=== PATIENT | male | born 1990 | race Caucasian/White ===

== ENCOUNTER 2020-07-12 13:31 | Emergency (ER) | payer OTHER, SELFPAY ==
--- NOTE | 2020-07-12 14:16 | ED_ITS ---
HPI - Nausea/Vomiting/Diarrhea General Chief complaint: Nausea/Vomiting/Diarrhea Stated complaint: diarrhea Time Seen by Provider: 07/12/20 14:15 Source: patient Mode of arrival: ambulatory Limitations: no limitations History of Present Illness MD elicited complaint: nausea, diarrhea and abdominal pain Onset (ago): week(s) (3+) Description of diarrhea: watery and loose Associated nausea: Yes Associated abdominal pain: Yes Location of pain: diffuse Radiation: diffuse Pain consistency: intermittent Severity: moderate Quality: cramping Exacerbating factors: eating Relieving factors: none Associated symptoms: loss of appetite and nausea/vomiting Related Data Allergies Allergy/AdvReac Type Severity Reaction Status Date / Time No Known Allergies Allergy Verified 07/12/20 14:40 [No Known Allergies*] Review of Systems Review of Systems: Constitutional : 10lb weight loss, No Fever, No Chills ENT/Mouth : No sore throat, No Rhinorrhea Eyes: No Swelling, No Redness Cardiovascular : No Chest Pain, No SOB, NoEdema Respiratory : No Cough, No Sputum, No Wheezing Gastrointestinal : Positive Nausea, no Vomiting, positive Diarrhea, positive abdominal Pain, No Hematochezia, No Melena Genitourinary : No Dysuria, No Urinary Frequency, No Hematuria, No Urgency Musculoskeletal : No joint pain, No Myalgias, No Joint Swelling Skin : No Skin Lesions, No rash Neuro : No Weakness, No Numbness, No Dizziness, No Headache Psych : No Anxiety/Panic, No Depression Heme/Lymph: No Bruising, No Lymphadenopathy Endocrine : No Polyuria, No Polydipsia All other systems reviewed and are negative. Gastrointestinal: Gastrointestinal: Reports nausea PMFSH Past Medical History Medical History (Updated 07/12/20 @ 15:53 by Glenda Vance DO) Bronchitis Social History Social History (Updated 07/12/20 @ 14:41 by Glenda Vance DO) Alcohol intake: never Smoking Status: Former smoker Use of substances other than those prescribed or required for medical reasons: No Advance Directives: No Advance Directives Information Provided: Yes Physical Exam Vital Signs and I&O and Narrative: Vital Signs and I&O: Vital Signs Temp 98.8 F 07/12/20 14:37 Pulse 69 07/12/20 14:37 Resp 16 07/12/20 14:37 BP 124/85 07/12/20 14:37 Pulse Ox 99 07/12/20 14:37 Intake & Output 07/11/20 07/12/20 07/12/20 18:59 06:59 18:59 Weight 63.503 kg Body Mass Index 22.6 Appearance: Alert. Oriented X3. No acute distress. Eyes: Pupils equal, round and reactive to light. ENT: Pharynx normal. Neck: Normal inspection. Neck supple. CVS: Normal heart rate and rhythm. Pulses normal. Respiratory: No respiratory distress. Breath sounds normal. Abdomen: Soft and nontender. Skin: Skin warm and dry. Normal skin color. Normal skin turgor. Extremities: No lower extremity edema. Normal exam Neuro: Oriented X 3. No motor deficit. No sensory deficit. Course Reevaluation(s) Reevaluation #1: signed out to Dr. White pending CT scan and labs MDM - Nausea/Vomiting/Diarrhea MDM Narrative Medical decision making narrative: patient with 3+ weeks of diarrhea and cramping every time he heats, no risk factors, reports 10lb weight loss, no fam hx of IBD, no risk factors no recent sick contacts or antibiotic use, at this time will need labs, hydration CT scan for colitis Lab Data Result diagrams: 07/12/20 15:00 Labs: Lab Results 07/12/20 07/12/20 Range/Units 15:00 15:00 WBC 9.0 (4.8-10.8) X10*3/uL RBC 4.66 (4.60-5.80) X10*6/uL Hgb 15.9 (14.0-18.0) g/dl Hct 44.1 (42-52) % MCV 94.6 (80-98) fL MCH 34.1 H (27.0-33.0) pg MCHC 36.1 H (31.0-36.0) g/dl RDW 12.2 (11.0-16.0) % Plt Count 284 (160-400) X10*3/uL MPV 9.4 (9.4-12.4) fL Immature Gran % (Auto) 0.3 (0.0-0.4) % Neut % (Auto) 61.5 (45-73) % Lymph % (Auto) 25.2 (20-40) % [place]aden % (Auto) 11.3 H (2-11) % Eos % (Auto) 1.0 (0-4) % Baso % (Auto) 0.7 (0-2) % Neut # (Auto) 5.5 (2.0-8.3) X10*3/uL Lymph # (Auto) 2.3 (1.2-4.9) X10*3/uL Bladen # (Auto) 1.0 (0.1-1.2) X10*3/uL Eos # (Auto) 0.1 (0.0-0.4) X10*3/uL Baso # (Auto) 0.1 (0.0-0.2) X10*3/uL Abs Immat Gran (auto) 0.03 (0.00-0.03) X10*3/uL Absolute Nucleated RBC 0.000 (0.0-0.012) X10*3/uL Nucleated RBC % (auto) 0.0 (0.0-0.2) /100WBC Hold Blue Top SEE NOTE Discharge Plan Discharge Clinical Impression: Diarrhea Qualifiers: Diarrhea type: unspecified type Qualified Code(s): R19.7 - Diarrhea, unspecified
[2020-07-12 14:37] VITALS: BP 124/85; PULSE 69; RESP 16; TEMP 37.1; O2SAT 99; BMI 22.6
--- NOTE | 2020-07-12 14:38 | CT_ITS ---
EXAMINATION: CT ABDOMEN AND PELVIS WITH CONTRAST CLINICAL INFORMATION: Abdominal pain. Diarrhea. COMPARISON: None TECHNIQUE: Multidetector volumetric images were obtained from the superior aspect of the liver through the pubic symphysis following administration 85 mL of Omnipaque 350 intravenous contrast. Sagittal and coronal reformatted images were obtained on the technologist's workstation. Oral contrast: No This CT examination was performed using dose optimization techniques as appropriate, variously including the following: *Automated exposure control *Adjustment of mA and/or kV according to patient size (this includes techniques or standardized protocols for targeted exams where dose is matched to indication/reason for exam; i.e. extremities or head) *Use of iterative reconstruction technique DLP: 375 mGy-cm FINDINGS: LUNG BASES: The visualized lung bases are unremarkable. LIVER, GALLBLADDER, AND BILIARY TREE: The liver is normal in size, shape, and attenuation. No focal hepatic lesion or biliary ductal dilatation is present. The gallbladder is unremarkable with no evidence of radiopaque gallstones, gallbladder wall thickening, or obvious pericholecystic inflammatory changes. PANCREAS: Unremarkable. SPLEEN: Unremarkable. ADRENAL GLANDS: Unremarkable. KIDNEYS AND URETERS: The kidneys are normal in size, shape, and attenuation. No hydronephrosis, hydroureter, or calculi seen. No perinephric stranding. BLADDER: Unremarkable. GASTROINTESTINAL TRACT: The small and large bowel are unremarkable. The appendix is unremarkable. ABDOMINAL WALL: No significant hernia is appreciated. LYMPH NODES: Normal. VASCULAR: Unremarkable. PELVIC VISCERA: Unremarkable. OSSEOUS STRUCTURES: Unremarkable. IMPRESSION: No acute abnormality CT scan abdomen pelvis
[2020-07-12] MEDS: 0.9 % Sodium Chloride 1,000 ML 999 ML IVCONT (15:06)
[2020-07-12 15:38] LABS: MANUAL DIFF FLAG NO
[2020-07-12 15:40] LABS: Basophils Absolute Auto 0.1 X10*3/uL (0.0-0.2); Basophils Percent Auto 0.7 % (0-2); Eosinophils Absolute Auto 0.1 X10*3/uL (0.0-0.4); Hematocrit 44.1 % (42-52); Hemoglobin 15.9 g/dl (14.0-18.0); Imm Gran Abs Auto 0.03 X10*3/uL (0.00-0.03); Imm Gran Pct Auto 0.3 % (0.0-0.4); Lymphocytes Absolute Auto 2.3 X10*3/uL (1.2-4.9); Lymphocytes Percent Auto 25.2 % (20-40); Mean Corpuscular HGB Conc 36.1 g/dl (31.0-36.0); Mean Corpuscular Hemoglobin 34.1 pg (27.0-33.0); Mean Corpuscular Volume 94.6 fL (80-98); Mean Platelet Volume 9.4 fL (9.4-12.4); Monocytes Percent Auto 11.3 % (2-11); Neutrophils Absolute Auto 5.5 X10*3/uL (2.0-8.3); Neutrophils Percent Auto 61.5 % (45-73); Platelet Count 284 X10*3/uL (160-400); Red Blood Count 4.66 X10*6/uL (4.60-5.80); Red Cell Distribution Width 12.2 % (11.0-16.0)
[2020-07-12 15:59] VITALS: PULSE 70
[2020-07-12 16:07] LABS: Alanine Aminotransferase 13 U/L (0-40); Albumin Level 5.1 g/dL (3.5-5.0); Anion Gap 14 (12-20); Aspartate Amino Transferase 12 U/L (5-37); Bilirubin Direct 0.4 mg/dL (0.0-0.5); Blood Urea Nitrogen 13 mg/dL (9-16); C Reactive Protein 0.02 mg/dL (< or = 0.50); Calcium 9.7 mg/dL (8.4-10.2); Carbon Dioxide 29 mmol/L (22-29); Chloride 105 mmol/L (96-108); Creatinine Clr Calc Pharmacy 122.8; Estimated Glomerular Filt Rate > 60; Glucose Random 91 mg/dL (60-115); Lipase 9 U/L (8-78); Magnesium 2.3 mg/dL (1.6-2.6); Potassium 4.1 mmol/l (3.3-5.1); Sodium 144 mmol/L (135-145); Total Protein 7.5 g/dL (6.5-8.0)
[2020-07-12 16:19] LABS: Alkaline Phosphatase 58 U/L (39-117)
[2020-07-12 16:23] LABS: Erythrocyte Sedimentation Rate 2 MM/HR (0-15)
[2020-07-12] MEDS: iohexoL 350 MG/ML 100 ML INFUS..BTL IV (16:40)
[2020-07-12 16:45] VITALS: BP 113/72; PULSE 62; RESP 16; TEMP 36.9; O2SAT 99
== END 2020-07-12 17:14 | disposition home or self-care (01) ==
PROVIDERS: Emergency Medicine; Emergency Provider Emergency Medicine; PCP Internal Medicine
DX: R19.7 Diarrhea, unspecified (principal); R11.0 Nausea; R10.9 Unspecified abdominal pain
CPT/HCPCS: 36415; 74177; 80048; 80076; 83690; 83735; 85025; 85652; 86140; 96360; 99284

== ENCOUNTER 2020-07-15 09:46 | Outpatient (REF) | payer OTHER, SELFPAY ==
[2020-07-15 11:44] LABS: Leukocytes Stool Qualitative NEGATIVE (NEGATIVE)
== END 2020-07-15 09:47 | disposition home or self-care (01) ==
LOC: HO.LNP 09:46
PROVIDERS: Visit Provider Internal Medicine
DX: R19.7 Diarrhea, unspecified (principal)
CPT/HCPCS: 36415; 87015; 87045; 87046; 87207; 87329; 87338; 89055

== ENCOUNTER 2020-07-21 08:45 | Emergency (ER) | payer OTHER, SELFPAY ==
--- NOTE | 2020-07-21 09:02 | ED_ITS ---
HPI - Psych General Chief Complaint: Psychiatric Symptoms Stated Complaint: crisis Time Seen by Provider: 07/21/20 09:02 Source: patient Mode of arrival: ambulatory Limitations: no limitations History of Present Illness MD complaint: suicidal ideation Onset (ago): day(s) (few days) Duration: constant History of same: Yes Relieving factors: none Exacerbating factors: none Context: not taking psychiatric medications (has not had a provider in months to take his medications) Associated psychiatric symptoms: depression and suicidal ideation Associated symptoms: denies other symptoms Treatments prior to arrival: none If self harm: admits thoughts of self harm and self-inflicted trauma (used razor to cause abrasions to left wrist) Related Data Home Medications Medication Instructions Recorded Confirmed ibuprofen 600 mg tablet 600 mg PO TID 07/14/20 Previous Rx's Medication Instructions Recorded loperamide [Anti-Diarrheal 2 mg PO QID PRN #20 cap 07/12/20 (loperamide)] Allergies Allergy/AdvReac Type Severity Reaction Status Date / Time No Known Allergies Allergy Verified 07/14/20 14:49 [No Known Allergies*] Review of Systems Review of Systems: Constitutional : No Fever, No Chills ENT/Mouth : No Ear Pain, No Nasal Congestion, No sore throat Eyes: No Eye Pain, No Swelling, No Redness Cardiovascular : No Chest Pain, No SOB Respiratory : No Cough, No Sputum, No Dyspnea Gastrointestinal : No Nausea, No Vomiting, No Diarrhea Genitourinary : No Dysuria, No Urinary Frequency, No Hematuria Musculoskeletal : No Myalgias Skin : No Skin Lesions, No rash, + superficial lacerations to left wrist Neuro : No Weakness, No Numbness, No Paresthesias, No Dizziness, No Headache Psych : positive Anxiety, positive Depression, positive SI, no HI Heme/Lymph: No Lymphadenopathy Endocrine : No Polyuria, No Polydipsia All other systems reviewed and are negative [facility] Past Medical History Medical History Bronchitis Diarrhea History of blue Family History Family History (Updated 07/14/20 @ 14:40 by DAWSON Blake) Father No problems noted. Mother No problems noted. Social History Social History Alcohol intake: never Smoking Status: Former smoker Years Smoked: 1 year Smoked in Last 30 Days: No Use of substances other than those prescribed or required for medical reasons: No Advance Directives: No Advance Directives Information Provided: No Physical Exam Vital Signs: Vital Signs: Vital Signs Temp Pulse Resp BP Pulse Ox 07/21/20 12:00 98.9 F 80 18 104/65 98 07/21/20 09:23 98.3 F 84 18 126/80 98 Body Mass Index 49.1 Appearance: Alert. Oriented X3. No acute distress. Eyes: Pupils equal, round and reactive to light. ENT: Pharynx normal. Neck: Normal inspection. Neck supple. CVS: Normal heart rate and rhythm. Pulses normal. Respiratory: No respiratory distress. Breath sounds normal. Abdomen: Soft and nontender. Skin: Skin warm and dry. Normal skin color. Normal skin turgor. 3 linear superficial abrasions on volar surface of wrist Extremities: No lower extremity edema. No calf ttp Neuro: Oriented X 3. No motor deficit. No sensory deficit. Psych: positive anxiety/depression, positive SI Course Reevaluation(s) Reevaluation #1: signed out to Dr. Williamson pending [facility] disposition Reevaluation #2: per [facility] planned admit, section 12 MDM - Psych MDM Narrative Medical decision making narrative: 30 yo male with anxiety and depression comes in with increased depression and self harm to left wrist - will need wound care they are superficial does not need sutures, labs, PO ativan for anxiety, crisis consult Restraints Face to Face Assessment: Face to Face Assessment: Current Situation: After assessment of the patient, a review of the pertinent medical record and a discussion with nursing staff, I feel the patient requires a restrain interv ention. Reaction To: [] Medical Condition: [] Behavioral State: [] Continued Need: [] Lab Data Result diagrams: 07/21/20 09:47 07/21/20 09:47 Labs: Lab Results 07/21/20 07/21/20 07/21/20 Range/Units 09:31 09:47 09:47 WBC 11.1 H (4.8-10.8) X10*3/uL RBC 4.82 (4.60-5.80) X10*6/uL Hgb 16.2 (14.0-18.0) g/dl Hct 45.7 (42-52) % MCV 94.8 (80-98) fL MCH 33.6 H (27.0-33.0) pg MCHC 35.4 (31.0-36.0) g/dl RDW 12.2 (11.0-16.0) % Plt Count 253 (160-400) X10*3/uL MPV 9.3 L (9.4-12.4) fL Immature Gran % (Auto) 0.2 (0.0-0.4) % Neut % (Auto) 76.4 H (45-73) % Lymph % (Auto) 14.1 L (20-40) % [place] % (Auto) 8.1 (2-11) % Eos % (Auto) 0.8 (0-4) % Baso % (Auto) 0.4 (0-2) % Lymph # (Auto) 1.6 (1.2-4.9) X10*3/uL [place] # (Auto) 0.9 (0.1-1.2) X10*3/uL Eos # (Auto) 0.1 (0.0-0.4) X10*3/uL Baso # (Auto) 0.1 (0.0-0.2) X10*3/uL Abs Immat Gran (auto) 0.02 (0.00-0.03) X10*3/uL Absolute Neuts (auto) 8.5 H (2.0-8.3) X10*3/uL Absolute Nucleated RBC 0.000 (0.0-0.012) X10*3/uL Nucleated RBC % (auto) 0.0 (0.0-0.2) /100WBC Sodium 139 (135-145) mmol/L Potassium 4.3 (3.3-5.1) mmol/l Chloride 102 (96-108) mmol/L Carbon Dioxide 30 H (22-29) mmol/L Anion Gap 11 L (12-20) BUN 12 (9-16) mg/dL Creatinine 0.78 (0.5-1.4) mg/dL Estim Creat Clear Calc TNP Estimated GFR > 60 Random Glucose 107 (60-115) mg/dL Calcium 9.7 (8.4-10.2) mg/dL Total Bilirubin 1.4 H (0.0-1.0) mg/dL Direct Bilirubin 0.5 (0.0-0.5) mg/dL AST 13 (5-37) U/L ALT 17 (0-40) U/L Alkaline Phosphatase 62 (39-117) U/L Total Protein 7.5 (6.5-8.0) g/dL Albumin 5.0 (3.5-5.0) g/dL Urine Opiates Screen Not Detected (Not Detect) Ur Barbiturates Screen Not Detected (Not Detect) Ur Phencyclidine Scrn Not Detected (Not Detect) Ur Amphetamines Screen Not Detected (Not Detect) U Benzodiazepines Scrn Not Detected (Not Detect) Urine Cocaine Screen Not Detected (Not Detect) U Marijuana (THC) Screen POSITIVE H (Not Detect) Ethyl Alcohol mg/dL 07/21/20 Range/Units 09:47 WBC (4.8-10.8) X10*3/uL RBC (4.60-5.80) X10*6/uL Hgb (14.0-18.0) g/dl Hct (42-52) % MCV (80-98) fL MCH (27.0-33.0) pg MCHC (31.0-36.0) g/dl RDW (11.0-16.0) % Plt Count (160-400) X10*3/uL MPV (9.4-12.4) fL Immature Gran % (Auto) (0.0-0.4) % Neut % (Auto) (45-73) % Lymph % (Auto) (20-40) % [place]ah % (Auto) (2-11) % Eos % (Auto) (0-4) % Baso % (Auto) (0-2) % Lymph # (Auto) (1.2-4.9) X10*3/uL [place] # (Auto) (0.1-1.2) X10*3/uL Eos # (Auto) (0.0-0.4) X10*3/uL Baso # (Auto) (0.0-0.2) X10*3/uL Abs Immat Gran (auto) (0.00-0.03) X10*3/uL Absolute Neuts (auto) (2.0-8.3) X10*3/uL Absolute Nucleated RBC (0.0-0.012) X10*3/uL Nucleated RBC % (auto) (0.0-0.2) /100WBC Sodium (135-145) mmol/L Potassium (3.3-5.1) mmol/l Chloride (96-108) mmol/L Carbon Dioxide (22-29) mmol/L Anion Gap (12-20) BUN (9-16) mg/dL Creatinine (0.5-1.4) mg/dL Estim Creat Clear Calc Estimated GFR Random Glucose (60-115) mg/dL Calcium (8.4-10.2) mg/dL Total Bilirubin (0.0-1.0) mg/dL Direct Bilirubin (0.0-0.5) mg/dL AST (5-37) U/L ALT (0-40) U/L Alkaline Phosphatase (39-117) U/L Total Protein (6.5-8.0) g/dL Albumin (3.5-5.0) g/dL Urine Opiates Screen (Not Detect) Ur Barbiturates Screen (Not Detect) Ur Phencyclidine Scrn (Not Detect) Ur Amphetamines Screen (Not Detect) U Benzodiazepines Scrn (Not Detect) Urine Cocaine Screen (Not Detect) U Marijuana (THC) Screen (Not Detect) Ethyl Alcohol < 10 mg/dL Discharge Plan Discharge Clinical Impression: Abrasion Depression Qualifiers: Depression Type: unspecified Qualified Code(s): F32.9 - Major depressive disorder, single episode, unspecified Prescriptions: No Action loperamide [Anti-Diarrheal (loperamide)] 2 mg capsule 2 mg PO QID PRN (Reason: diarrhea) Qty: 20 RF: 0 ibuprofen 600 mg tablet 600 mg PO TID RF: 0
--- NOTE | 2020-07-21 09:06 | PC.NURSE ---
Pt arrived to unit, evaluated by MD w/ spanish medical interpreter present, cooperative w/ changeover.
[2020-07-21 09:23] VITALS: BP 126/80; PULSE 84; RESP 18; TEMP 36.8; O2SAT 98
[2020-07-21 09:53] LABS: Amphetamine Screen Urine Not Detected (Not Detect); Barbiturates, Urine Not Detected (Not Detect); Benzodiazepines Screen Urine Not Detected (Not Detect); Cannabinoid Screen Urine POSITIVE (Not Detect); Cocaine Screen Urine Not Detected (Not Detect); Opiate Screen Urine Not Detected (Not Detect); Phencyclidine Screen Urine Not Detected (Not Detect)
[2020-07-21 09:54] LABS: MANUAL DIFF FLAG NO
[2020-07-21 09:55] LABS: Basophils Absolute Auto 0.1 X10*3/uL (0.0-0.2); Basophils Percent Auto 0.4 % (0-2); Eosinophils Absolute Auto 0.1 X10*3/uL (0.0-0.4); Eosinophils Percent Auto 0.8 % (0-4); Hematocrit 45.7 % (42-52); Hemoglobin 16.2 g/dl (14.0-18.0); Imm Gran Abs Auto 0.02 X10*3/uL (0.00-0.03); Imm Gran Pct Auto 0.2 % (0.0-0.4); Lymphocytes Absolute Auto 1.6 X10*3/uL (1.2-4.9); Lymphocytes Percent Auto 14.1 % (20-40); Mean Corpuscular HGB Conc 35.4 g/dl (31.0-36.0); Mean Corpuscular Hemoglobin 33.6 pg (27.0-33.0); Mean Corpuscular Volume 94.8 fL (80-98); Mean Platelet Volume 9.3 fL (9.4-12.4); Monocytes Absolute Auto 0.9 X10*3/uL (0.1-1.2); Monocytes Percent Auto 8.1 % (2-11); Neutrophils Absolute Auto 8.5 X10*3/uL (2.0-8.3); Neutrophils Percent Auto 76.4 % (45-73); Platelet Count 253 X10*3/uL (160-400); Red Blood Count 4.82 X10*6/uL (4.60-5.80); Red Cell Distribution Width 12.2 % (11.0-16.0); White Blood Count 11.1 X10*3/uL (4.8-10.8)
[2020-07-21] MEDS: LORazepam 1 MG TABLET PO (09:59)
[2020-07-21 10:23] LABS: Ethanol < 10 mg/dL
[2020-07-21 10:27] LABS: Alanine Aminotransferase 17 U/L (0-40); Alkaline Phosphatase 62 U/L (39-117); Anion Gap 11 (12-20); Aspartate Amino Transferase 13 U/L (5-37); Bilirubin Direct 0.5 mg/dL (0.0-0.5); Bilirubin Total 1.4 mg/dL (0.0-1.0); Blood Urea Nitrogen 12 mg/dL (9-16); Calcium 9.7 mg/dL (8.4-10.2); Carbon Dioxide 30 mmol/L (22-29); Chloride 102 mmol/L (96-108); Estimated Glomerular Filt Rate > 60; Glucose Random 107 mg/dL (60-115); Potassium 4.3 mmol/l (3.3-5.1); Sodium 139 mmol/L (135-145); Total Protein 7.5 g/dL (6.5-8.0)
[2020-07-21 11:00] VITALS: BMI 49.1
[2020-07-21 12:00] VITALS: BP 104/65; PULSE 80; RESP 18; TEMP 37.2; O2SAT 98
--- NOTE | 2020-07-21 12:57 | PC.NURSE ---
Called to [facility]; unable to fax, Perfecto juarez
--- NOTE | 2020-07-21 15:45 | PC.NURSE ---
Pt resting in room, seen by N. Pt is now awaiting inpatient bedsearch.
[2020-07-21 17:15] VITALS: BP 103/63; PULSE 82; RESP 18; TEMP 36.9; O2SAT 98
[2020-07-21 21:51] VITALS: BP 109/67; PULSE 69; RESP 16; TEMP 36.8; O2SAT 97
--- NOTE | 2020-07-22 00:21 | PC.NURSE ---
2200:PATIENT SLEEPING AT THIS TIME. SKIN P/W/D. AIRWAY PATENT. ABLE TO REPOSITION SELF IN BED. 2300: PATIENT SLEEPING AT THIS TIME. SKIN P/W/D. AIRWAY PATENT. ABLE TO REPOSITION SELF IN BED. 0000: PATIENT SLEEPING AT THIS TIME. SKIN P/W/D. AIRWAY PATENT. ABLE TO REPOSITION SELF IN BED.
--- NOTE | 2020-07-22 04:26 | PC.NURSE ---
0200: patient resting in bed. intermittently walking out to use rest room, when doing so denies needs. 0426: patient sleeping at this time. skin p/w/d. airway patent.
--- NOTE | 2020-07-22 06:09 | PC.NURSE ---
sarah gave permission to give care update to sister Nereida
[2020-07-22 06:48] VITALS: BP 106/62; PULSE 86; RESP 17; TEMP 36.7; O2SAT 98
--- NOTE | 2020-07-22 07:13 | PC.NURSE ---
Report received. PT is resting in bed. Just got up to use the bathroom. Bed search in progress.
[2020-07-22 09:24] VITALS: BP 113/76; PULSE 100; RESP 18; TEMP 36.3; O2SAT 98
--- NOTE | 2020-07-22 09:41 | PC.NURSE ---
PT is resting in bed. Calm and cooperative. No complaints at this time.
[2020-07-22] MEDS: LORazepam 1 MG TABLET PO (10:31)
--- NOTE | 2020-07-22 11:12 | PC.NURSE ---
PT is sleeping in bed. Breathing is even and unlabored. No other complaints that this time.
--- NOTE | 2020-07-22 13:22 | PC.NURSE ---
PT is resting in bed. Calm and cooperative. Behavior withdrawn, laying in bed watching TV.
--- NOTE | 2020-07-22 14:57 | PC.NURSE ---
PT is taking a shower. Calm and cooperative. No other complaints.
--- NOTE | 2020-07-22 14:58 | PC.NURSE ---
PT accepted to [facility] in [place] pending a negative covid swab. Nurse to nurse completed with Donna
[2020-07-22 16:20] VITALS: BP 103/67; PULSE 90; RESP 18; TEMP 36.8; O2SAT 98
[2020-07-22 16:50] LABS: SARS COV2 PCR INHOUSE NEGATIVE (Negative)
--- NOTE | 2020-07-22 17:21 | PC.NURSE ---
[facility] contacted with covid result, results to be faxed. Pt resting, aware of plan of care, calm and cooperative.
[2020-07-22 19:27] VITALS: RESP 18
[2020-07-22] MEDS: LORazepam 1 MG TABLET 2 MG PO (19:54)
[2020-07-22 20:59] VITALS: BP 104/71; PULSE 88; RESP 18; TEMP 36.8; O2SAT 98
[2020-07-22 23:45] VITALS: RESP 18
[2020-07-23 03:34] VITALS: RESP 18
--- NOTE | 2020-07-23 07:04 | PC.NURSE ---
Report received. PT woke up to use the bathroom. Calm and cooperative. Ride to inpatient scheduled for 729.
[2020-07-23] MEDS: LORazepam 1 MG TABLET PO (07:48)
== END 2020-07-23 08:14 ==
PROVIDERS: Nurse Practitioner Family; Emergency Provider Emergency Medicine; PCP Internal Medicine
DX: S60.812A Abrasion of left wrist, initial encounter (principal); X78.8XXA Intentional self-harm by other sharp object, initial encounter; F32.9 Major depressive disorder, single episode, unspecified; Z20.828 Contact with and (suspected) exposure to other viral communicable diseases; Y93.9 Activity, unspecified; Y92.9 Unspecified place or not applicable; Y99.9 Unspecified external cause status
CPT/HCPCS: 36415; 80048; 80076; 80307; 80320; 85025; 87635; 90471; 90715; 99285

== ENCOUNTER 2020-08-11 10:44 | Outpatient (REF) | payer OTHER, SELFPAY ==
[2020-08-11 14:31] LABS: MANUAL DIFF FLAG NO
[2020-08-11 14:34] LABS: Basophils Percent Auto 0.4 % (0-2); Eosinophils Absolute Auto 0.2 X10*3/uL (0.0-0.4); Eosinophils Percent Auto 2.1 % (0-4); Hematocrit 46.2 % (42-52); Hemoglobin 16.1 g/dl (14.0-18.0); Imm Gran Abs Auto 0.03 X10*3/uL (0.00-0.03); Imm Gran Pct Auto 0.3 % (0.0-0.4); Lymphocytes Absolute Auto 2.2 X10*3/uL (1.2-4.9); Lymphocytes Percent Auto 22.9 % (20-40); Mean Corpuscular HGB Conc 34.8 g/dl (31.0-36.0); Mean Corpuscular Hemoglobin 33.8 pg (27.0-33.0); Mean Corpuscular Volume 97.1 fL (80-98); Mean Platelet Volume 9.5 fL (9.4-12.4); Monocytes Absolute Auto 1.1 X10*3/uL (0.1-1.2); Neutrophils Absolute Auto 6.2 X10*3/uL (2.0-8.3); Neutrophils Percent Auto 63.3 % (45-73); Platelet Count 259 X10*3/uL (160-400); Red Blood Count 4.76 X10*6/uL (4.60-5.80); Red Cell Distribution Width 12.5 % (11.0-16.0); White Blood Count 9.8 X10*3/uL (4.8-10.8)
[2020-08-11 14:57] LABS: Alanine Aminotransferase 30 U/L (0-40); Albumin Level 4.7 g/dL (3.5-5.0); Alkaline Phosphatase 65 U/L (39-117); Anion Gap 13 (12-20); Aspartate Amino Transferase 18 U/L (5-37); Bilirubin Total 0.7 mg/dL (0.0-1.0); Blood Urea Nitrogen 13 mg/dL (9-16); Calcium 8.7 mg/dL (8.4-10.2); Carbon Dioxide 32 mmol/L (22-29); Chloride 103 mmol/L (96-108); Estimated Glomerular Filt Rate > 60; Glucose Random 85 mg/dL (60-115); Lipase 9 U/L (8-78); Potassium 4.7 mmol/l (3.3-5.1); Sodium 143 mmol/L (135-145); Total Protein 7.3 g/dL (6.5-8.0)
[2020-08-11 15:19] LABS: Thyroid Stimulating Hormone 1.25 mIU/mL (0.32-4.0)
[2020-08-12 14:01] LABS: CRP High Sensitivity 1.2 mg/L
[2020-08-12 18:16] LABS: Transglutaminase IgA 1 U/mL
[2020-08-15 14:07] LABS: Endomysial IgA Antibody Negative (Negative)
== END 2020-08-11 10:45 | disposition home or self-care (01) ==
LOC: HO.LAB 10:44
PROVIDERS: PCP Internal Medicine; Referring Provider Internal Medicine; Visit Provider Physician Assistant
DX: R19.7 Diarrhea, unspecified (principal); K59.09 Other constipation
CPT/HCPCS: 36415; 80053; 83516; 83690; 84443; 85025; 86141; 86255; 86256; 99202

== ENCOUNTER 2020-08-14 10:28 | Outpatient (REF) | payer OTHER, SELFPAY ==
[2020-08-14 13:44] LABS: Leukocytes Stool Qualitative NEGATIVE (NEGATIVE)
== END 2020-08-14 10:29 | disposition home or self-care (01) ==
LOC: HO.LNP 10:28
PROVIDERS: Physician Assistant; Visit Provider Internal Medicine
DX: R19.7 Diarrhea, unspecified (principal)
CPT/HCPCS: 87015; 87045; 87046; 87207; 87329; 87338; 89055

== ENCOUNTER 2020-08-25 08:05 | Outpatient (REF) | payer OTHER, SELFPAY ==
--- NOTE | 2020-08-25 08:05 | CT_ITS ---
EXAMINATION: CT ABDOMEN AND PELVIS WITH CONTRAST CLINICAL INFORMATION: Abdominal pain COMPARISON: 07/12/2020 TECHNIQUE: Multidetector volumetric images were obtained from the superior aspect of the liver through the pubic symphysis following administration 85 mL of Omnipaque 350 intravenous contrast. Sagittal and coronal reformatted images were obtained on the technologist's workstation. Oral contrast: Yes This CT examination was performed using dose optimization techniques as appropriate, variously including the following: *Automated exposure control *Adjustment of mA and/or kV according to patient size (this includes techniques or standardized protocols for targeted exams where dose is matched to indication/reason for exam; i.e. extremities or head) *Use of iterative reconstruction technique DLP: 286 mGy-cm FINDINGS: LUNG BASES: The visualized lung bases are unremarkable. LIVER, GALLBLADDER, AND BILIARY TREE: The liver is normal in size, shape, and attenuation. No focal hepatic lesion or biliary ductal dilatation is present. The gallbladder is unremarkable with no evidence of radiopaque gallstones, gallbladder wall thickening, or obvious pericholecystic inflammatory changes. PANCREAS: Unremarkable. SPLEEN: Unremarkable. ADRENAL GLANDS: Unremarkable. KIDNEYS AND URETERS: The kidneys are normal in size, shape, and attenuation. No hydronephrosis, hydroureter, or calculi seen. No perinephric stranding. BLADDER: Unremarkable. GASTROINTESTINAL TRACT: The stomach is unremarkable. Normal caliber small bowel. There is no obstruction. Normal appendix. No colonic wall thickening or acute inflammatory changes. No free air or free fluid. ABDOMINAL WALL: No significant hernia is appreciated. LYMPH NODES: Normal. VASCULAR: Unremarkable. PELVIC VISCERA: The prostate and seminal vesicles are unremarkable. OSSEOUS STRUCTURES: No acute or suspicious osseous abnormality. Mild degenerative change in the hips with osteophytes noted. CT/CT abdomen pelvis w con IMPRESSION: No suspicious findings of the abdomen or pelvis. No inflammatory changes.
[2020-08-25] MEDS: iohexoL 350 MG/ML 100 ML INFUS..BTL 85 ML IV (09:09)
== END 2020-08-25 08:06 | disposition home or self-care (01) ==
LOC: HO.CT 08:05
PROVIDERS: PCP Internal Medicine; Visit Provider Physician Assistant
DX: R10.9 Unspecified abdominal pain (principal)
CPT/HCPCS: 74177; Q9967

== ENCOUNTER → 2020-09-11 07:55 | Outpatient (BNVA) | payer OTHER, SELFPAY | PROVIDERS: PCP Internal Medicine; Visit Provider Physician Assistant | DX: Z76.89 Persons encountering health services in other specified circumstances (principal) ==

== ENCOUNTER 2020-11-25 15:23 | Outpatient (REF) | payer OTHER, SELFPAY | END 2020-11-25 15:24 | disposition home or self-care (01) | LOC: HO.LAB 15:23 | PROVIDERS: PCP Internal Medicine; Visit Provider Internal Medicine | DX: Z20.822 Contact with and (suspected) exposure to COVID-19 (principal) | CPT/HCPCS: 36415; C9803; U0003; U0005 ==

== ENCOUNTER 2020-12-04 14:44 | Outpatient (REF) | payer OTHER, SELFPAY | END 2020-12-04 14:45 | disposition home or self-care (01) | LOC: HO.LAB 14:44 | PROVIDERS: Visit Provider Internal Medicine | DX: Z20.822 Contact with and (suspected) exposure to COVID-19 (principal) | CPT/HCPCS: 36415; C9803; U0003; U0005 ==

== ENCOUNTER 2020-12-18 08:48 | Outpatient (REF) | payer OTHER, SELFPAY | END 2020-12-18 08:49 | disposition home or self-care (01) | LOC: HO.LAB 08:48 | PROVIDERS: Visit Provider Internal Medicine | DX: Z20.822 Contact with and (suspected) exposure to COVID-19 (principal) | CPT/HCPCS: 36415; C9803; U0003; U0005 ==

== ENCOUNTER 2021-02-28 21:00 | Emergency (ER) | payer OTHER, SELFPAY | END 2021-02-28 22:25 | disposition left against medical advice (07) | PROVIDERS: Emergency Provider Emergency Medicine; PCP Internal Medicine | DX: S01.81XA Laceration without foreign body of other part of head, initial encounter (principal); X58.XXXA Exposure to other specified factors, initial encounter; Y93.9 Activity, unspecified; Y92.9 Unspecified place or not applicable; Y99.9 Unspecified external cause status ==

== ENCOUNTER 2021-03-21 11:00 | Emergency (ER) | payer OTHER, SELFPAY ==
--- NOTE | ~2021-03-21 | XR_ITS ---
EXAMINATION: XR HAND-RIGHT XR SHOULDER-RIGHT CLINICAL INFORMATION: Right hand and right shoulder pain. History of fall. COMPARISON: None TECHNIQUE: 3 views of the right hand and 3 views of the right shoulder were obtained. FINDINGS: Right hand: The bony alignment is intact. The cortices are intact. Articular margins, joint space appear unremarkable. The soft tissues are unremarkable. Right shoulder: The bony alignment is intact. Cortices are intact. The articular margins, joint space appear unremarkable. The soft tissues are unremarkable. XR/XR hand RT min 3V IMPRESSION: No radiographic evidence of any acute fracture, subluxation or dislocation is seen at the right hand and right shoulder.
--- NOTE | ~2021-03-21 | XR_ITS ---
EXAMINATION: XR HAND-RIGHT XR SHOULDER-RIGHT CLINICAL INFORMATION: Right hand and right shoulder pain. History of fall. COMPARISON: None TECHNIQUE: 3 views of the right hand and 3 views of the right shoulder were obtained. FINDINGS: Right hand: The bony alignment is intact. The cortices are intact. Articular margins, joint space appear unremarkable. The soft tissues are unremarkable. Right shoulder: The bony alignment is intact. Cortices are intact. The articular margins, joint space appear unremarkable. The soft tissues are unremarkable. XR/XR shoulder RT min 2V IMPRESSION: No radiographic evidence of any acute fracture, subluxation or dislocation is seen at the right hand and right shoulder.
[2021-03-21 11:29] VITALS: BP 108/65; PULSE 92; RESP 17; TEMP 37.2; O2SAT 97; BMI 26.8
--- NOTE | 2021-03-21 11:54 | ED.EXTPRO ---
HPI - Extremity Problem General Chief complaint: Extremity Injury, Upper Stated complaint: FALL HAND AND LEG INJ Time Seen by Provider: 03/21/21 11:32 Source: patient Mode of arrival: ambulatory Limitations: language barrier (Thai speaking, medium cycle salesperson used) History of Present Illness HPI Narrative: Patient is a 30-year-old male with no significant past medical history who [place] and slipped on the rocks. He states he slipped backwards and sideways and landed on his outstretched right hand. He is complaining of right hand pain, some pain and wrist pain as well as right shoulder pain. He is able to move all of his fingers his wrist to his elbow and his shoulder but with some pain. He did not seek immediate medical attention when the injury happened. He did not hit his head or lose consciousness. He denies numbness or tingling in his fingers or arm, right side. Related Data Home Medications Medication Instructions Recorded Confirmed duloxetine 30 mg capsule,delayed 30 mg PO BID 08/05/20 09/11/20 release lorazepam 1 mg tablet 1 mg PO TID PRN 08/05/20 09/11/20 quetiapine 50 mg tablet 50 mg PO BEDTIME 08/05/20 09/11/20 Previous Rx's Medication Instructions Recorded barium sulfate 2 % (w/v) oral 900 ml PO ONCE #900 ml 08/12/20 suspension bismuth subsalicylate 262 mg 2 tab PO QID 14 Days #112 tab 09/11/20 chewable tablet metronidazole 250 mg tablet 250 mg PO QID 14 Days #56 tab 09/11/20 omeprazole 20 mg capsule,delayed 20 mg PO BID 14 Days #28 cap 09/11/20 release tetracycline 500 mg capsule 500 mg PO Q6H 14 Days #56 cap 09/11/20 Allergies Allergy/AdvReac Type Severity Reaction Status Date / Time No Known Allergies Allergy Verified 07/14/20 14:49 [No Known Allergies*] Review of Systems Review of Systems: Yes all other systems are reviewed and are negative PMFSH Past Medical History Medical History Anxiety and depression Bronchitis Diarrhea History of blue Surgical History Hx of eye surgery Hx of knee surgery Family History Family History Father No problems noted. Mother No problems noted. Social History Social History Household Members Other:: lives with girlfriend Alcohol intake: never Years Smoked: 1 year Advance Directives: No Advance Directives Information Provided: No Physical Exam Vital Signs: Vital Signs: Last Vital Signs Temp 98.9 F 03/21/21 11:29 Pulse 92 03/21/21 11:29 Resp 17 03/21/21 11:29 BP 108/65 03/21/21 11:29 Pulse Ox 97 03/21/21 11:29 Body Mass Index 26.8 Const: General: cooperative, healthy appearing, comfortable and no acute distress Nutritional Appearance: average body habitus Orientation/consciousness: patient oriented x3 Limitations: language barrier HENMT: Head: Yes normal to inspection and Yes atraumatic Eyes: General: appearance normal, both eyes and all related structures Neck: Neck: Yes normal visual inspection and Yes full ROM Neuro: General: patient oriented x3 Extrem: Right upper extremity: shoulder/upper arm Details: normal to inspection and tenderness Location: of the A-C joint; no swelling, no abrasions, no lacerations and no ecchymosis and Extremity exam: right hand (Setup Operator strength 4/5) Details: normal to inspection, normal capillary refill, neuromotor exam normal, neurosensory exam normal, tendon exam normal, tenderness (Anatomical snuffbox), abnormal ROM of finger Details: pain with passive ROM Location: of the thumb and no swelling; no abrasions, no lacerations and no ecchymosis Course Course Course Narrative: Patient is a 30-year-old male with no significant past medical history who was in the river two days ago and slipped on the rocks. VSS, physical exam remarkable for tenderness on the right hands in the anatomical snuffbox, acute specialist strength 4-5, tenderness to the anterior shoulder at the AC joint, will get right shoulder x-ray as well as right hand x-ray. Reevaluation(s) Reevaluation #1: Right shoulder and right hand x-ray both unremarkable, will discharge with follow-up with PCP. Time: 12:53 MDM - Extremity (Nontraumatic) Imaging Data Right shoulder and right hand x-ray: Attestation: I personally reviewed and interpreted this imaging study as follows: My impression: No acute pathology Radiologist's impression: [address] [id number] ReportSigned Patient: Juan AlstonMR#: [id number]: 1990Acct:[id number]/Sex: 30 / MADM Date: 03/21/21Loc: HO.EDAttending Dr: Ordering Physician: Sarah Astorga PA-C Date of Service: 03/21/21 Procedure(s): XR shoulder RT min 2V Accession Number(s): [id number] cc: Sarah Astorga PA-C~ EXAMINATION: XR HAND-RIGHT XR SHOULDER-RIGHT CLINICAL INFORMATION: Right hand and right shoulder pain. History of fall. COMPARISON: None TECHNIQUE: 3 views of the right hand and 3 views of the right shoulder were obtained. FINDINGS: Right hand: The bony alignment is intact. The cortices are intact. Articular margins, joint space appear unremarkable. The soft tissues are unremarkable. Right shoulder: The bony alignment is intact. Cortices are intact. The articular margins, joint space appear unremarkable. The soft tissues are unremarkable. XR/XR shoulder RT min 2V IMPRESSION: No radiographic evidence of any acute fracture, subluxation or dislocation is seen at the right hand and right shoulder. Dictated By:SUSAN CHIN MDSigned By:<Electronically signed by SUSAN CHIN MD in OV>03/21/21 1219 DD/ 1137TD/TT: Bus Company Manager: ILENE Discharge Plan Discharge Clinical Impression: Hand pain, right Acute shoulder pain due to trauma Qualifiers: Laterality: right Qualified Code(s): M25.511 - Pain in right shoulder Patient Disposition: Home, Self-Care Instructions: Shoulder Sprain (ED) Additional Instructions: Today in the emergency department, both x-rays of your right shoulder and her right hand were negative for any acute fracture or dislocation. Please rest her shoulder and her hand, use ice and ibuprofen as needed. If her pain continues, please follow-up with your primary care doctor as they may repeat the x-rays at that point. Prescriptions: No Action lorazepam 1 mg tablet 1 mg PO TID PRNRF: 0 duloxetine 30 mg capsule,delayed release(DR/EC) 30 mg PO BID RF: 0 quetiapine 50 mg tablet 50 mg PO BEDTIME RF: 0 Readi-Cat 2 2 % (w/v) suspension 900 ml PO ONCE Qty: 900 RF: 0 metronidazole 250 mg tablet 250 mg PO QID 14 Days Qty: 56 RF: 0 omeprazole 20 mg capsule,delayed release(DR/EC) 20 mg PO BID 14 Days Qty: 28 RF: 0 tetracycline 500 mg capsule 500 mg PO Q6H 14 Days Qty: 56 RF: 0 bismuth subsalicylate [Bismuth] 262 mg tablet,chewable 2 tab PO QID 14 Days Qty: 112 RF: 0 Referrals: Vernell Jackson MD [Primary Care Provider] - 2 days (If your pain continues) Print Language: Thai
== END 2021-03-21 13:08 | disposition home or self-care (01) ==
PROVIDERS: Emergency Provider Emergency Medicine Emergency Medical Services; PCP Internal Medicine
DX: G89.11 Acute pain due to trauma (principal); M25.511 Pain in right shoulder; M79.641 Pain in right hand
CPT/HCPCS: 73030; 73130; 99283

== ENCOUNTER 2021-07-22 15:29 | Emergency (ER) | payer OTHER, SELFPAY ==
[2021-07-22 15:38] VITALS: BP 102/66; PULSE 83; RESP 18; TEMP 36.5; O2SAT 96; BMI 26.4
--- NOTE | 2021-07-22 15:46 | ED.BACK ---
HPI - Back Pain/Injury General Chief Complaint: Back Pain/Injury Stated Complaint: back pain Time Seen by Provider: 07/22/21 15:46 Source: patient Mode of arrival: ambulatory Limitations: no limitations History of Present Illness HPI Narrative: 31-year-old male presents to the ER with right-sided middle back that started 2 days ago. He reports noticing the pain when he was at work. 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 He reports the pain is worse with movement to the left as well as when he takes a big deep breath. He denies any radiation of the pain. He has no urinary symptoms including no hematuria. No fever no chills. He has no numbness or weakness in his legs. He ambulates with a steady gait. He is not taken any medications for the pain. MD elicited complaint: back pain Onset (ago): day(s) (2) Timing: intermittent Severity: moderate Similar Symptoms Previously: Yes Quality: stabbing, aching and spasming Location: right upper back (Middle) Radiation: none Exacerbating factors: movement, deep breaths and coughing/sneezing Relieving factors: immobilization and supine Context: turning/twisting Associated symptoms: denies other symptoms Work related injury: Yes Related Data Previous Rx's Medication Instructions Recorded bupropion HCl 75 mg tablet 75 mg PO BID 90 Days #180 tab 07/13/21 duloxetine 30 mg capsule,delayed 30 mg PO BID 30 Days #60 cap 07/13/21 release quetiapine 50 mg tablet 100 mg PO BEDTIME 90 Days #180 tab 07/13/21 cyclobenzaprine 10 mg tablet 10 mg PO TID PRN #10 tab 07/22/21 ibuprofen 600 mg tablet 600 mg PO Q8H PRN #14 tab 07/22/21 lidocaine 5 % topical patch 1 patch TOPICAL DAILY #15 ea 07/22/21 Allergies Allergy/AdvReac Type Severity Reaction Status Date / Time No Known Allergies Allergy Verified 07/22/21 15:38 [No Known Allergies*] Review of Systems Review of Systems: Constitutional: No Fever, No Chills Cardiovascular: No Chest Pain, No SOB Respiratory: No Cough, No Sputum Gastrointestinal: No Nausea, No Vomiting, No Diarrhea, No abdominal Pain Genitourinary: No Dysuria, No Urinary Frequency, No Hematuria Musculoskeletal: No joint pain, + Myalgias Skin: No Skin Lesions, No rash Neuro: No Weakness, No Numbness Heme/Lymph: No Bruising PMFSH Past Medical History Medical History (Updated 07/22/21 @ 16:43 by RYAN Underwood) Anxiety and depression Bronchitis Diarrhea NAT (generalized anxiety disorder) History of blue Mild recurrent major depression Surgical History Hx of eye surgery Hx of knee surgery Family History Family History (Updated 07/13/21 @ 08:31 by Vernell Evans MD) Father Essential hypertension CVA (cerebral vascular accident) Mother No problems noted. Social History Social History Household Members Other:: lives with girlfriend Housing: Apartment Alcohol intake: never Patient Tobacco Use Status: Former Tobacco user Tobacco use type: Cigarette Years Smoked: 1 year e-Cigarette/Vaping Use: Never Used Second Hand Smoke Exposure: No Advance Directives: No Advance Directives Information Provided: No service: No Current occupational status: employed Current occupational exposures/hazards: No Physical Exam Vital Signs: Vital Signs: Last Vital Signs Temp 97.7 F 07/22/21 15:38 Pulse 83 07/22/21 15:38 Resp 18 07/22/21 15:38 BP 102/66 07/22/21 15:38 Pulse Ox 96 07/22/21 15:38 Body Mass Index 26.4 Appearance: Alert. Oriented X3. No acute distress. HEENT: normal external inspection Neck: Normal inspection. Neck supple. No cervical spinal tenderess. CVS: Normal heart rate and rhythm. Pulses normal. Respiratory: No respiratory distress. Breath sounds normal. Back: normal inspection. right middle thoracic area with soft tissue tenderness and palpable spasm along paraspinous muscles and trapezius. no spinal tenderness of thoracic or lumbar spine. Skin: Skin warm and dry. Normal skin color. Normal skin turgor. No rashes. Extremities: No lower extremity edema. Atraumatic x4 Neuro: Oriented X 3. No motor deficit. No sensory deficit. Steady gait. Course Course Course Narrative: 31-year-old male presenting with right middle back pain after working in a factory 2 days ago. He reports pain is worse with rotation to the left as well as when he takes a big deep breath. He has palpable spasm on exam. His history and clinical presentation are consistent with thoracic muscle spasm and strain. Will treat symptomatically with NSAID, muscle relaxer and Lidoderm. He was advised to use ice and rest from work. No heavy lifting. He will follow up with his primary care doctor as needed. Work note provided. Stable for discharge home. Critical Care Time Critical Care Time Critical Care Time: No Discharge Plan Discharge Clinical Impression: Thoracic back pain Qualifiers: Chronicity: acute Back pain laterality: right Qualified Code(s): M54.6 - Pain in thoracic spine Patient Disposition: Home, Self-Care Instructions: Back Pain (ED) Additional Instructions: Your pain is most likely due to muscle strain and spasm. Recommend rest and gentle massage to the area. No bending, lifting or twisting. Use ice several times per day for 20 minutes at a time for the next 48 hours and then change to heat. Take medications as prescribed to help with pain and discomfort. Follow up with your Primary Care Doctor this week. If your pain worsens, if you develop new numbness, tingling, weakness, loss of function or incontinence call 911 or come back to the ER right away for evaluation. Prescriptions: New cyclobenzaprine 10 mg tablet 10 mg PO TID PRN (Reason: muscle spasm) Qty: 10 RF: 0 lidocaine 5 % adhesive patch,medicated 1 patch topical DAILY Qty: 15 RF: 0 ibuprofen 600 mg tablet 600 mg PO Q8H PRN (Reason: pain) Qty: 14 RF: 0 No Action bupropion HCl 75 mg tablet 75 mg PO BID 90 Days Qty: 180 RF: 1 duloxetine 30 mg capsule,delayed release(DR/EC) 30 mg PO BID 30 Days Qty: 60 RF: 0 quetiapine 50 mg tablet 100 mg PO BEDTIME 90 Days Qty: 180 RF: 0 Referrals: Vernell Jackson MD [Primary Care Provider] - 1 week (back pain) Stand Alone Forms: Work/School Release Interventions: ED Discharge Assessment Last Done: 07/22/21 16:57 Discharge Date/Time: 07/22/21 16:58 Print Language: Mongolian
== END 2021-07-22 16:58 | disposition home or self-care (01) ==
PROVIDERS: Emergency Provider Internal Medicine; PCP Internal Medicine
DX: M54.6 Pain in thoracic spine (principal)
CPT/HCPCS: 99283

== ENCOUNTER 2021-08-23 10:20 | Emergency (ER) | payer OTHER, SELFPAY ==
--- NOTE | ~2021-08-23 | XR_ITS ---
EXAMINATION: XR RIBS, RIGHT CLINICAL INFORMATION: Right rib pain for 2 weeks COMPARISON: Chest x-ray 11/16/2017 TECHNIQUE: 3 views of the right ribs were obtained. FINDINGS: Cardiac silhouette is normal in size. The lungs are well aerated. There is no lobar consolidation. No pleural effusion or pneumothorax. No right-sided rib fracture. XR/XR ribs RT min 3V w CXR1V IMPRESSION: No right-sided rib fracture.
[2021-08-23 10:25] VITALS: BP 115/77; PULSE 98; RESP 17; TEMP 36.4; O2SAT 98
[2021-08-23 11:13] VITALS: BP 115/77; PULSE 98; RESP 18; TEMP 36.4; O2SAT 98; BMI 26.6
--- NOTE | 2021-08-23 13:04 | ED.BACK ---
HPI - Back Pain/Injury General Chief Complaint: Back Pain/Injury Stated Complaint: BACK PAIN Time Seen by Provider: 08/23/21 11:25 Source: patient Mode of arrival: ambulatory Limitations: no limitations History of Present Illness MD elicited complaint: back pain Onset (ago): week(s) (Approximately 2 weeks) Timing: constant and progressively worsening Severity: moderate Quality: aching Location: right upper back Radiation: none Exacerbating factors: movement and lifting Relieving factors: none Associated symptoms: denies other symptoms Related Data Previous Rx's Medication Instructions Recorded bupropion HCl 75 mg tablet 75 mg PO BID 90 Days #180 tab 07/13/21 duloxetine 30 mg capsule,delayed 30 mg PO BID 30 Days #60 cap 07/13/21 release quetiapine 50 mg tablet 100 mg PO BEDTIME 90 Days #180 tab 07/13/21 cyclobenzaprine 10 mg tablet 10 mg PO TID PRN #10 tab 07/22/21 ibuprofen 600 mg tablet 600 mg PO Q8H PRN #14 tab 07/22/21 lidocaine 5 % topical patch 1 patch TOPICAL DAILY #15 ea 07/22/21 diazepam 10 mg tablet (Valium) 10 mg PO TID PRN #14 tab 08/23/21 naproxen 500 mg tablet 500 mg PO BID PRN #10 tab 08/23/21 oxycodone-acetaminophen 5 mg-325 1 tab PO Q6H PRN #10 tab 08/23/21 mg tablet (Percocet) Allergies Allergy/AdvReac Type Severity Reaction Status Date / Time No Known Allergies Allergy Verified 07/22/21 15:38 [No Known Allergies*] Review of Systems Review of Systems: Constitutional : No trauma, No Weight loss, No Fever, No Chills, ENT/Mouth : No Hearing loss, No Ear Pain, No Nasal Congestion, No Sinus Pain, No Hoarseness, No sore throat, No Rhinorrhea, No Swallowing Difficulty Cardiovascular : No Chest Pain, No SOB Respiratory : No Cough, No Dyspnea Gastrointestinal : No Nausea, No Vomiting, No Diarrhea, No abdominal Pain, No Hematochezia, No Melena Genitourinary : No Dysuria, No Urinary Frequency, No Hematuria, No Urinary or Bowel Incontinence/retention Musculoskeletal : + Back pain, No neck pain, No joint stiffness, No joint swelling Skin : No Skin Lesions, No rash or signs of infection Neuro : No Weakness, No radiation, No Numbness, No Paresthesias, No headache, no loss of bowel or bladder incontinence, no saddle anesthesia, Focal weakness, No radiation Denies history of IV drug usage. Yes all other systems are reviewed and are negative [facility] Past Medical History Attestation statement: The following information was validated with the patient. Medical History Anxiety and depression Bronchitis Diarrhea NAT (generalized anxiety disorder) History of blue Mild recurrent major depression Surgical History Hx of eye surgery Hx of knee surgery Family History Family History Father Essential hypertension CVA (cerebral vascular accident) Mother No problems noted. Social History Social History Household Members Other:: lives with girlfriend Housing: Apartment Alcohol intake: never Patient Tobacco Use Status: Former Tobacco user Tobacco use type: Cigarette Years Smoked: 1 year e-Cigarette/Vaping Use: Never Used Second Hand Smoke Exposure: No Advance Directives: No Advance Directives Information Provided: No service: No Current occupational status: employed Current occupational exposures/hazards: No Physical Exam Vital Signs: Vital Signs: Last Vital Signs Temp 97.5 F 08/23/21 11:13 Pulse 98 08/23/21 11:13 Resp 18 08/23/21 11:13 BP 115/77 08/23/21 11:13 Pulse Ox 98 08/23/21 11:13 Body Mass Index 26.6 vital signs have been reviewed as normal and appeared to be correct. Blood pressure normal. Heart rate normal. Respiration rate normal. Temperature normal. Oxygen saturation normal. Appearance: Alert. Oriented X3. No acute distress. Head: Normal external exam. Normocephalic. Atraumatic. Eyes: PERRLA. EOMI. Conjunctiva and sclera normal. Eyelids normal. ENT: Pharynx normal. Uvula midline. Moist mucous membranes. Neck: Normal inspection. Neck supple. FROM. No adenopathy. Thyroid Normal. No meningeal signs. No neck mass noted. CVS: Normal heart rate and rhythm. Heart sound normal. No murmurs noted. Pulses normal throughout. Respiratory: No respiratory distress. Painless inspiration. Breath sounds normal. No wheezes/rales/rhonchi noted. Chest nontender. No accessory muscle usage noted or decreased air movement noted. Abdomen: Soft and nontender. Bowel sounds normal in all 4 quadrants. No distention noted. No organomegaly noted. No visible injury noted. Back: No CVA tenderness. Full range of motion noted. No obvious deformities, or edema. Mild para-spinal muscular tenderness on right-sided thoracicregion. Full ROM in back and lower extremities. 5/5 strength hip extension/flexion, abduction, adduction. Mild Lumbar pain with hip flexion against resistance. Straight leg raise test negative on right; Straight leg raise test negative on left; Reflexes normal ankle and knee bilaterally; EHL motor strength normal bilaterally. No rashes/lesion/induration/fluctuance or signs infection noted. Skin: Skin warm and dry. Normal skin color. Normal skin turgor. No rashes/lesions/lacerations noted. Extremities: Extremities exhibit normal range of motion. Extremities nontender. Neuro: Oriented X 3. No motor deficit. No sensory deficit. Reflexes normal. Patient has a normal steady gait. Course Course Course Narrative: 31-year-old male presenting to the ED with complaints of right-sided middle back pain that started approximately 2 weeks ago. He reports that the pain started when he was at work although is unsure if it was a work related injury. 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 Reports the pain is worse with movement and when he takes a deep breath. Denies any radiation of the pain. Denies any urinary symptoms. Denies any hematuria. Denies any IV drug usage. Denies any numbness or tingling or weakness in the legs. X-ray obtained and negative for any acute processes. He ambulates with a normal steady gait. He reports he was seen here on 07/22/2021 for scribed medications and it did not provide any symptomatic relief that is why he return here for further evaluation treatment. Will DC home with symptomatic treatment instructions to return if any new or worsening symptoms to follow up with primary care provider. MDM - Back Pain/Injury Medical Records Attestation: I reviewed the patient's medical records. Imaging Data Right-sided ribs and PA chest x-ray: Attestation: I personally reviewed and interpreted this imaging study as follows: Radiologist's impression: FINDINGS: Cardiac silhouette is normal in size. The lungs are well aerated. There is no lobar consolidation. No pleural effusion or pneumothorax. No right-sided rib fracture. XR/XR ribs RT min 3V w CXR1V IMPRESSION: No right-sided rib fracture. Discharge Plan Discharge Clinical Impression: Muscle strain of right upper back Patient Disposition: Home, Self-Care Instructions: Muscle Strain (ED) Prescriptions: New oxycodone-acetaminophen [Percocet] 5-325 mg tablet 1 tab PO Q6H PRN (Reason: pain) Qty: 10 RF: 0 diazepam [Valium] 10 mg tablet 10 mg PO TID PRN (Reason: muscle spasm) Qty: 14 RF: 0 naproxen 500 mg tablet 500 mg PO BID PRN (Reason: pain) Qty: 10 RF: 0 No Action cyclobenzaprine 10 mg tablet 10 mg PO TID PRN (Reason: muscle spasm) Qty: 10 RF: 0 lidocaine 5 % adhesive patch,medicated 1 patch topical DAILY Qty: 15 RF: 0 ibuprofen 600 mg tablet 600 mg PO Q8H PRN (Reason: pain) Qty: 14 RF: 0 bupropion HCl 75 mg tablet 75 mg PO BID 90 Days Qty: 180 RF: 1 duloxetine 30 mg capsule,delayed release(DR/EC) 30 mg PO BID 30 Days Qty: 60 RF: 0 quetiapine 50 mg tablet 100 mg PO BEDTIME 90 Days Qty: 180 RF: 0 Referrals: Vernell Jackson MD [Primary Care Provider] - 2 days Stand Alone Forms: Work/School Release Print Language: Upper Sorbian
== END 2021-08-23 13:29 | disposition home or self-care (01) ==
PROVIDERS: Emergency Provider Emergency Medicine; PCP Internal Medicine
DX: S29.012A Strain of muscle and tendon of back wall of thorax, initial encounter (principal); X58.XXXA Exposure to other specified factors, initial encounter; Y93.9 Activity, unspecified; Y92.9 Unspecified place or not applicable; Y99.9 Unspecified external cause status
CPT/HCPCS: 71101; 99283; 99284

== ENCOUNTER 2021-10-12 12:25 | Outpatient (REF) | payer OTHER, SELFPAY | END 2021-10-12 12:26 | disposition home or self-care (01) | LOC: HO.HMGCLDS 12:25 | PROVIDERS: Visit Provider Internal Medicine | DX: Z20.822 Contact with and (suspected) exposure to COVID-19 (principal) | CPT/HCPCS: C9803; U0003; U0005 ==

== ENCOUNTER 2021-11-10 10:20 | Outpatient (REF) | payer OTHER, SELFPAY ==
--- NOTE | ~2021-11-10 | XR_ITS ---
EXAMINATION: XR CHEST CLINICAL INFORMATION: Chest pain COMPARISON: Previous chest and right rib x-ray August 2021 TECHNIQUE: 2 views of the chest were obtained. FINDINGS: No significant abnormality is noted involving the heart, lungs, mediastinum, bony thorax or soft tissues. XR/XR chest 2V IMPRESSION: Unremarkable examination.
== END 2021-11-10 10:21 | disposition home or self-care (01) ==
LOC: HO.XRAY 10:20
PROVIDERS: PCP Internal Medicine; Visit Provider Nurse Practitioner Acute Care
DX: R07.89 Other chest pain (principal)
CPT/HCPCS: 71046

== ENCOUNTER 2021-12-02 15:46 | Outpatient (REF) | payer OTHER, SELFPAY ==
[2021-12-02 16:03] LABS: MANUAL DIFF FLAG NO
[2021-12-02 17:13] LABS: Basophils Absolute Auto 0.1 X10*3/uL (0.0-0.2); Basophils Percent Auto 0.6 % (0-2); Eosinophils Absolute Auto 0.1 X10*3/uL (0.0-0.4); Hematocrit 43.2 % (42.0-52.0); Hemoglobin 15.4 g/dl (14.0-18.0); Imm Gran Abs Auto 0.01 X10*3/uL (0.00-0.03); Imm Gran Pct Auto 0.1 % (0.0-0.4); Lymphocytes Absolute Auto 2.4 X10*3/uL (1.2-4.9); Lymphocytes Percent Auto 27.5 % (20-40); Mean Corpuscular HGB Conc 35.6 g/dl (31.0-36.0); Mean Corpuscular Hemoglobin 33.3 pg (27.0-33.0); Mean Corpuscular Volume 93.3 fL (80.0-98.0); Mean Platelet Volume 9.5 fL (9.4-12.4); Monocytes Absolute Auto 0.9 X10*3/uL (0.1-1.2); Monocytes Percent Auto 9.9 % (2-11); Neutrophils Absolute Auto 5.3 x10*3/uL (2.0-8.3); Neutrophils Percent Auto 60.9 % (45-73); Platelet Count 282 X10*3/uL (160-400); Red Blood Count 4.63 X10*6/uL (4.60-5.80); Red Cell Distribution Width 11.9 % (11.0-16.0); White Blood Count 8.7 X10*3/uL (4.8-10.8)
[2021-12-02 17:54] LABS: Alanine Aminotransferase 15 U/L (0-40); Albumin Level 4.9 g/dL (3.5-5.0); Alkaline Phosphatase 62 U/L (39-117); Anion Gap 15 (12-20); Aspartate Amino Transferase 16 U/L (5-37); Bilirubin Total 0.8 mg/dL (0.0-1.0); Blood Urea Nitrogen 19 mg/dL (9-16); Calcium 9.8 mg/dL (8.4-10.2); Carbon Dioxide 30 mmol/L (22-29); Chloride 101 mmol/L (96-108); Estimated Glomerular Filt Rate > 60; Glucose Random 92 mg/dL (60-115); Potassium 4.6 mmol/L (3.3-5.1); Sodium 141 mmol/L (135-145); Total Protein 7.5 g/dL (6.5-8.0)
[2021-12-02 17:59] LABS: Erythrocyte Sedimentation Rate 4 MM/HR (0-15)
[2021-12-02 18:02] LABS: Gamma Glutamyl Transpeptidase 20 U/L (11-51)
[2021-12-02 18:19] LABS: Folate 16.7 ng/mL (> or = 4.0); Vitamin B12 435 pg/mL (200-900)
[2021-12-06 15:17] LABS: Vitamin D 25-OH, D2 <4 ng/mL; Vitamin D 25-OH, D3 10 ng/mL; Vitamin D 25-OH, Total 10 ng/mL (30-100)
== END 2021-12-02 15:47 | disposition home or self-care (01) ==
LOC: HO.LAB 15:46
PROVIDERS: PCP Internal Medicine; Visit Provider Nurse Practitioner Acute Care
DX: M54.6 Pain in thoracic spine (principal)
CPT/HCPCS: 36415; 80053; 82306; 82607; 82746; 82977; 84443; 85025; 85652

== ENCOUNTER → 2021-12-15 15:07 | Outpatient (BNVA) | payer OTHER, SELFPAY | PROVIDERS: PCP Internal Medicine; Visit Provider Nurse Practitioner Family | DX: M79.18 Myalgia, other site (principal) | CPT/HCPCS: 20552; 99202; J3300 ==

== ENCOUNTER 2022-07-14 08:46 | Outpatient (REF) | payer OTHER, SELFPAY ==
[2022-07-14 08:54] LABS: MANUAL DIFF FLAG NO
[2022-07-14 10:17] LABS: Basophils Percent Auto 0.4 % (0-2); Eosinophils Absolute Auto 0.2 X10*3/uL (0.0-0.4); Eosinophils Percent Auto 2.7 % (0-4); Hematocrit 43.3 % (42.0-52.0); Hemoglobin 15.6 g/dl (14.0-18.0); Imm Gran Abs Auto 0.01 X10*3/uL (0.00-0.03); Imm Gran Pct Auto 0.1 % (0.0-0.4); Lymphocytes Absolute Auto 1.7 X10*3/uL (1.2-4.9); Lymphocytes Percent Auto 23.4 % (20-40); Mean Corpuscular Hemoglobin 33.2 pg (27.0-33.0); Mean Corpuscular Volume 92.1 fL (80.0-98.0); Mean Platelet Volume 9.4 fL (9.4-12.4); Monocytes Absolute Auto 0.7 X10*3/uL (0.1-1.2); Monocytes Percent Auto 10.4 % (2-11); Neutrophils Absolute Auto 4.4 x10*3/uL (2.0-8.3); Platelet Count 259 X10*3/uL (160-400); Red Cell Distribution Width 12.5 % (11.0-16.0)
[2022-07-14 11:04] LABS: Alanine Aminotransferase 13 U/L (0-40); Albumin Level 4.7 g/dL (3.5-5.0); Alkaline Phosphatase 55 U/L (39-117); Anion Gap 16 (12-20); Aspartate Amino Transferase 15 U/L (5-37); Bilirubin Total 0.8 mg/dL (0.0-1.0); Blood Urea Nitrogen 16 mg/dL (9-16); Calcium 9.2 mg/dL (8.4-10.2); Carbon Dioxide 25 mmol/L (22-29); Chloride 104 mmol/L (96-108); Cholesterol 151 mg/dL; Estimated Glomerular Filt Rate > 60; Glucose Fasting 87 mg/dL (60-99); HDL Cholesterol 34 mg/dL; LDL Cholesterol Calculated 102 mg/dl; Potassium 4.5 mmol/L (3.3-5.1); Sodium 140 mmol/L (135-145); Triglycerides 77 mg/dL
[2022-07-14 11:14] LABS: Vitamin D 25-OH Total 22.5 ng/mL (>30)
== END 2022-07-14 08:47 | disposition home or self-care (01) ==
LOC: HO.LAB 08:46
PROVIDERS: PCP Internal Medicine; Visit Provider Internal Medicine
DX: Z00.00 Encounter for general adult medical examination without abnormal findings (principal); E55.9 Vitamin D deficiency, unspecified; E78.5 Hyperlipidemia, unspecified; R63.4 Abnormal weight loss
CPT/HCPCS: 36415; 80053; 80061; 82306; 84443; 85025

== ENCOUNTER 2023-01-14 15:50 | Emergency (ER) | payer OTHER, SELFPAY ==
--- NOTE | ~2023-01-14 | XR_ITS ---
EXAMINATION: XR LUMBOSACRAL SPINE CLINICAL INFORMATION: Low back pain COMPARISON: None available. TECHNIQUE: Three views of the lumbosacral spine. FINDINGS: The vertebral bodies and posterior elements are normal. The disc spaces are preserved and the vertebral alignment is normal. The paraspinal soft tissues are normal. XR/XR lumbar spine 2-3V IMPRESSION: Unremarkable examination.
[2023-01-14 16:00] VITALS: BP 93/64; PULSE 79; RESP 14; TEMP 36.6; O2SAT 98; BMI 26.6
--- NOTE | 2023-01-14 16:04 | ED_ITS ---
HPI - General Adult General Chief complaint: Back Pain/Injury <RYAN Hernandez - Last Filed: 01/14/23 18:18> Stated complaint: back pain <RYAN Hernandez - Last Filed: 01/14/23 18:18> Time Seen by Provider: 01/14/23 16:24 <RYAN Hernandez - Last Filed: 01/14/23 18:18> Source: patient <RYAN Shaffer - Last Filed: 01/14/23 18:37> Mode of arrival: ambulatory <RYAN Shaffer - Last Filed: 01/14/23 18:37> History of Present Illness HPI narrative: 32-year-old male with past medical history of anxiety, depression, bronchitis, anxiety, presenting to the ED complaining of atraumatic low back pain since this morning. Reports prior history of back issues, denies recent injury, trauma, fall, or heavy lifting. Denies radiation of pain. Reports feels stiff, also with urinary discomfort. Denies abdominal pain, flank pain, hematuria, dysuria, urinary incontinence/retention, fever <RYAN Shaffer - Last Filed: 01/14/23 18:37> Onset (ago): hour(s) <RYAN Shaffer - Last Filed: 01/14/23 18:37> Related Data Home medications: Previous Rx's Medication Instructions Recorded bupropion HCl 75 mg tablet 75 mg PO BID 90 days #180 tabs 11/06/21 duloxetine 30 mg capsule,delayed 30 mg PO BID 30 days #60 caps 12/28/21 release hydroxyzine HCl 25 mg tablet 25 mg PO Q6-8H PRN anxiety #30 tabs 02/19/22 cholecalciferol (vitamin D3) 50 50 mcg PO DAILY 90 days #90 caps 07/14/22 mcg (2,000 unit) capsule quetiapine 50 mg tablet 100 mg PO BEDTIME 90 days #180 tabs 11/08/22 acetaminophen 500 mg tablet 500 mg PO Q6H PRN fever or pain 01/14/23 (Tylenol Extra Strength) #14 tabs cyclobenzaprine 5 mg tablet 5 mg PO Q8H PRN pain (scale score 01/14/23 7-10) 5 days #14 tabs lidocaine 5 % topical patch 1 patch topical DAILY PRN pain #30 04/07/23 (Lidoderm) ea naproxen 500 mg tablet 500 mg PO BID PRN pain 10 days #20 01/14/23 tabs <RYAN Hernandez - Last Filed: 01/14/23 18:18> Allergies/adverse reactions: Allergies Allergy/AdvReac Type Severity Reaction Status Date / Time No Known Allergies Allergy Verified 07/14/22 08:32 [No Known Allergies*] <RYAN Hernandez - Last Filed: 01/14/23 18:18> Review of Systems Review of Systems: Constitutional: No Fever, No Chills ENT/Mouth: No Ear Pain, No Nasal Congestion, No sore throat, No Rhinorrhea, No Swallowing Difficulty Cardiovascular: No Chest Pain, No SOB Respiratory: No Cough, No Wheezing Gastrointestinal: No Nausea, No Vomiting, No Abdominal pain Genitourinary: No Dysuria, No Urinary Frequency, No Hematuria, No Urinary Incontinence/retention, No Flank Pain Musculoskeletal: + joint pain, No Myalgias, No Joint Swelling Skin: No Skin Lesions, No rash Neuro: No Weakness, No Numbness, No Paresthesias <RYAN Shaffer - Last Filed: 01/14/23 18:37> Yes all other systems are reviewed and are negative <RYAN Shaffer - Last Filed: 01/14/23 18:37> Constitutional: Constitutional: Reports as per HPI <RYAN Shaffer - Last Filed: 01/14/23 18:37> Neurologic: Denies Sensory deficit (Neuro) <RYAN Shaffer - Last Filed: 01/14/23 18:37> [facility] Past Medical History Attestation statement: The following information was validated with the patient. <RYAN Shaffer - Last Filed: 01/14/23 18:37> Medical History: Medical History Anxiety and depression Bronchitis Diarrhea NAT (generalized anxiety disorder) History of blue Mild recurrent major depression <RYAN Hernandez - Last Filed: 01/14/23 18:18> Surgical History: Surgical History Hx of eye surgery Hx of knee surgery <RYAN Hernandez - Last Filed: 01/14/23 18:18> Family History Family History: Family History Father Essential hypertension CVA (cerebral vascular accident) Mother No problems noted. <RYAN Hernandez - Last Filed: 01/14/23 18:18> Social History Social History: Social History Household Members Other:: lives with girlfriend Housing: Apartment Alcohol intake: current Alcohol intake frequency: holidays/special occasions only Alcohol type: beer Patient Tobacco Use Status: Current someday Tobacco user Tobacco use type: Cigarette Cigarettes Per Day: 1 Years Smoked: 1 year e-Cigarette/Vaping Use: Never Used Second Hand Smoke Exposure: No Advance Directives: No Advance Directives Information Provided: No service: No Current occupational status: employed Current occupational exposures/hazards: No Cognitive needs: No Hearing needs: No Vision needs: No <RYAN Hernandez - Last Filed: 01/14/23 18:18> Physical Exam ED Vital Signs: Vital Signs - 24 hr 01/14/23 16:00 Temperature 97.9 F Pulse Rate 79 Respiratory Rate 14 Blood Pressure 93/64 Pulse Oximetry 98 Oxygen Delivery Method Room Air BMI result Body Mass Index 26.6 <RYAN Hernandez - Last Filed: 01/14/23 18:18> Vital Signs - 24 hr 01/14/23 16:00 Temperature 97.9 F Pulse Rate 79 Respiratory Rate 14 Blood Pressure 93/64 Pulse Oximetry 98 Oxygen Delivery Method Room Air BMI result Body Mass Index 26.6 <RYAN Shaffer - Last Filed: 01/14/23 18:37> Const General: cooperative, healthy appearing, comfortable and no acute distress <RYAN Shaffer Last Filed: 01/14/23 18:37> Orientation/consciousness: patient oriented x3 <RYAN Shaffer Last Filed: 01/14/23 18:37> Limitations: no limitations <RYAN Shaffer Last Filed: 01/14/23 18:37> HENMT Head: Yes normal to inspection and Yes atraumatic <RYAN Shaffer Last Filed: 01/14/23 18:37> Ears: hearing grossly normal bilaterally <Kaelyn Rhiannonuli PA - Last Filed: 01/14/23 18:37> General nose exam: Normal external nose present <Kaelyn Rhiannonuli PA - Last Filed: 01/14/23 18:37> Face and sinus: Yes normal facial exam <Kaelyn Rhiannonuli PA - Last Filed: 01/14/23 18:37> Eyes General: appearance normal, both eyes and all related structures <Kaelyn Rhiannonuli PA - Last Filed: 01/14/23 18:37> EOM: EOMs intact bilaterally <Kaelyn Rhiannonuli PA - Last Filed: 01/14/23 18:37> Neck Neck: Yes normal visual inspection and Yes no meningeal signs <Kaelyn Rhiannonuli PA - Last Filed: 01/14/23 18:37> Resp Effort & Inspection: normal respiratory effort and no respiratory distress <Kaelyn Francis PA - Last Filed: 01/14/23 18:37> Auscultation: clear to auscultation bilaterally <Kaelyn Rhiannonuli PA - Last Filed: 01/14/23 18:37> Cardio Rate: regular rate <Kaelyn Rhiannonuli PA - Last Filed: 01/14/23 18:37> Heart sounds: S1 normal heart sound present and S2 normal heart sound present <Kaelyn Rhiannonuli PA - Last Filed: 01/14/23 18:37> GI Inspection: Yes normal to inspection <Kaelyn Francis PA - Last Filed: 01/14/23 18:37> Palpation (GI): Soft to palpation, nontender, no guarding and not rigid <Kaelyn Francis PA - Last Filed: 01/14/23 18:37> General: Yes no CVA tenderness <Kaelyn Francis PA - Last Filed: 01/14/23 18:37> Back/Spine/Pelvis Other: No midline thoracic/lumbar spinous tenderness/step-off or deformity. +bilateral lumbar MSK tenderness to palpation. No erythema/rash or ecchymosis. <Kaelyn Francis PA - Last Filed: 01/14/23 18:37> Back: no CVA tenderness <RYAN Shaffer Last Filed: 01/14/23 18:37> Skin Rashes: no rashes <RYAN Shaffer Last Filed: 01/14/23 18:37> Wounds: no wounds <RYAN Shaffer Last Filed: 01/14/23 18:37> Neuro Other: Strength intact throughout. No saddle anesthesia. Sensation intact to light touch. Neurovascular intact distally <RYAN Shaffer Last Filed: 01/14/23 18:37> General: patient oriented x3, tone normal, moves all extremities, no meningeal signs and no focal motor deficits <RYAN Shaffer Last Filed: 01/14/23 18:37 > Gait exam (Neuro): Normal gait present <RYAN Shaffer Last Filed: 01/14/23 18:37> Motor exam (neuro): 5/5 motor strength present throughout <RYAN Shaffer Last Filed: 01/14/23 18:37> Sensory Exam: No Sensory deficit (Neuro) <RYAN Shaffer Last Filed: 01/14/23 18:37> Extrem General: Yes normal to inspection <RYAN Shaffer Last Filed: 01/14/23 18:37> Course Course Course Narrative: RME performed by Yeimi Agarwal PA-C. Patient is a 32 year old assigned male at presenting to the emergency department with an episode of acute on chronic back pain. Patient placed back in the waiting room pending room availability. <RYAN Hernandez Last Filed: 01/14/23 18:18> RME performed by Yeimi Agarwal PA-C. Patient is a 32 year old assigned male at presenting to the emergency department with an episode of acute on chronic back pain. Patient placed back in the waiting room pending room availability. XR lumbar spine 2-3V IMPRESSION: Unremarkable examination. Results discussed with patient including worrisome signs and symptoms and strict return precautions, and when to return to the emergency department. They verbalized understanding and feel safe for discharge at this time. <RYAN Shaffer Last Filed: 01/14/23 18:37> Medications Administered Discontinued Medications Generic Name Dose Route Start Last Admin Trade Name Freq PRN Reason Stop Dose Admin Cyclobenzaprine HCl 10 mg 01/14/23 16:54 01/14/23 17:12 Cyclobenzaprine Hcl 10 Mg Tablet PO 01/14/23 16:55 10 mg ONCE ONE Administration Ketorolac Tromethamine 30 mg 01/14/23 16:54 01/14/23 17:12 Ketorolac Tromethamine 30 Mg/Ml Vial IM 01/14/23 16:55 30 mg ONCE ONE Administration Lidocaine 1 patch 01/14/23 16:54 01/14/23 17:13 Lidocaine 4 % Patch Adh..Patch TRANSDERMA 01/14/23 16:55 1 patch ONCE ONE Administration Protocol <RYAN Hernandez - Last Filed: 01/14/23 18:18> Medications Administered Discontinued Medications Generic Name Dose Route Start Last Admin Trade Name Randy PRN Reason Stop Dose Admin Cyclobenzaprine HCl 10 mg 01/14/23 16:54 01/14/23 17:12 Cyclobenzaprine Hcl 10 Mg Tablet PO 01/14/23 16:55 10 mg ONCE ONE Administration Ketorolac Tromethamine 30 mg 01/14/23 16:54 01/14/23 17:12 Ketorolac Tromethamine 30 Mg/Ml Vial IM 01/14/23 16:55 30 mg ONCE ONE Administration Lidocaine 1 patch 01/14/23 16:54 01/14/23 17:13 Lidocaine 4 % Patch Adh..Patch TRANSDERMA 01/14/23 16:55 1 patch ONCE ONE Administration Protocol <RYAN Shaffer - Last Filed: 01/14/23 18:37> Medical Decision Making Medical Decision Making MDM Narrative: 32-year-old male with past medical history of anxiety, depression, b ronchitis, anxiety, presenting to the ED complaining of atraumatic low back pain since this morning. On exam VSS, NAD, nontoxic appearing, + bilateral lumbar MSK tenderness to palpation, no red flag symptoms, no saddle anesthesia. Ambulating with steady gait. Concern for MSK pain/spasming. Low suspicion for fracture, cauda equina, cord compression, epidural abscess Plan: X-rays requested by patient, pain control Please refer to course for remaining clinical decision making, interpretation of labs/imaging results, and discussions with consultants and/or family members. <RYAN Shaffer - Last Filed: 01/14/23 18:37> Differential Diagnosis Differential Diagnoses: The differential diagnosis associated with the presentation includes <RYAN Shaffer Last Filed: 01/14/23 18:37> As above <RYAN Shaffer - Last Filed: 01/14/23 18:37> Admission/Observation Consideration of admission/observation: Escalation of care including admission/observation considered <RYAN Shaffer Last Filed: 01/14/23 18:37> Lab Data MDM Lab Attestation statement: I reviewed the patient's lab results. <RYAN Shaffer Last Filed: 01/14/23 18:37> Radiology Impression Discussion of test interpretation with radiology: I have reviewed the radiologist's reading. <RYAN Shaffer - Last Filed: 01/14/23 18:37> External Record Review External record reviewed: Inpatient record, Office record, Outpatient record, Prior outpatient labs, Prior outpatient radiology, Primary care record and Outside ED record <RYAN Shaffer Last Filed: 01/14/23 18:37> Discharge Plan Discharge Clinical Impression: Strain of lumbar region <RYAN Hernandez Last Filed: 01/14/23 18:18> Patient Disposition: Home, Self-Care <RYAN Hernandez Last Filed: 01/14/23 18:18> Instructions: Acute Low Back Pain (ED) <RYAN Hernandez - Last Filed: 01/14/23 18:18> Additional Instructions: Your pain is likely musculoskeletal Flexeril is a muscle relaxer, take at night as it makes you drowsy, do not drive, drink alcohol, or operate machinery while taking it Naproxen as an anti-inflammatory / pain medication, take with food Lidoderm patches are numbing patches, apply to painful area In addition take Tylenol at home If symptoms persist or worsen, pain becomes unbearable, you developed urinary retention or incontinence, or weakness return to the ED Es probable que hunter dolor sea musculoesquel?joanne Flexeril es un relajante muscular, t?rosario por la noche ya que te adormece, no conduzcas, bebas alcohol ni operes maquinaria mientras lo brian. Naproxeno giovanna medicamento antiinflamatorio/analg?sico, t?theodore con alimentos Los parches de Lidoderm son parches anest?sicos, se aplican en el ?tana dolorida Adem?s leonor Tylenol en casa Si los s?ntomas persisten o empeoran, el dolor se vuelve insoportable, desarroll? retenci?n urinaria o incontinencia, o debilidad, regrese al servicio de urgencias. <RYAN Hernandez - Last Filed: 01/14/23 18:18> Prescriptions: New acetaminophen [Tylenol Extra Strength] 500 mg tablet 500 mg PO Q6H PRN (Reason: fever or pain) Qty: 14 0RF lidocaine [Lidoderm] 5 % adhesive patch,medicated 1 patch topical DAILY MDD remove after 12 hours PRN (Reason: pain) Qty: 30 0RF Rx Instructions: leave on most painful area for up to 12 hrs naproxen 500 mg tablet 500 mg PO BID PRN (Reason: pain) 10 Days Qty: 20 0RF cyclobenzaprine 5 mg tablet 5 mg PO Q8H PRN (Reason: pain (scale score 7-10)) 5 Days Qty: 14 0RF No Action duloxetine 30 mg capsule,delayed release(DR/EC) 30 mg PO BID 30 Days Qty: 60 0RF cholecalciferol (vitamin D3) 50 mcg (2,000 unit) capsule 50 mcg PO DAILY 90 Days Qty: 90 1RF quetiapine 50 mg tablet 100 mg PO BEDTIME 90 Days Qty: 180 0RF bupropion HCl 75 mg tablet 75 mg PO BID 90 Days Qty: 180 1RF Rx Instructions: administer 6 hours apart hydroxyzine HCl 25 mg tablet 25 mg PO Q6-8H PRN (Reason: anxiety) Qty: 30 0RF <RYAN Hernandez - Last Filed: 01/14/23 18:18> Referrals: Vernell Jackson MD [Primary Care Provider] - 5 days <RYAN Hernandez - Last Filed: 01/14/23 18:18> Stand Alone Forms: Work/School Release <RYAN Hernandez - Last Filed: 01/14/23 18:18> Interventions: ED Discharge Assessment Last Done: 01/14/23 18:36 <RYAN Hernandez - Last Filed: 01/14/23 18:18> Discharge Date/Time: 01/14/23 18:37 <RYAN Hernandez - Last Filed: 01/14/23 18:18> Print Language: [place] Citizen <RYAN Hernandez - Last Filed: 01/14/23 18:18>
[2023-01-14] MEDS: Ketorolac Tromethamine 30 MG/ML VIAL IM (17:12)
[2023-01-14] MEDS: Cyclobenzaprine HCl 10 MG TABLET PO (17:12)
[2023-01-14] MEDS: Lidocaine 4 % Patch ADH..PATCH 1 PATCH TRANSDERMA (17:13)
== END 2023-01-14 18:37 | disposition home or self-care (01) ==
PROVIDERS: Emergency Provider Emergency Medicine; PCP Internal Medicine
DX: M54.50 Low back pain, unspecified (principal); F17.210 Nicotine dependence, cigarettes, uncomplicated; Z71.6 Tobacco abuse counseling; Z79.899 Other long term (current) drug therapy
CPT/HCPCS: 72100; 96372; 99283; 99284; J1885

== ENCOUNTER 2023-01-17 11:22 | Outpatient (REF) | payer OTHER, SELFPAY ==
--- NOTE | ~2023-01-17 | XR_ITS ---
EXAMINATION: XR CERVICAL SPINE CLINICAL INFORMATION: Cervalgia COMPARISON: None available. TECHNIQUE: 3 views of the cervical spine were obtained. FINDINGS: There are no prevertebral soft tissue or bony abnormalities demonstrated. No compression fractures or subluxations are identified. Alignment is maintained at the atlanto-axial articulation. The disc spaces are preserved. No endplate changes are seen. The prevertebral soft tissues are normal. The foramina are patent. XR/XR cervical spine 2V IMPRESSION: Unremarkable examination.
== END 2023-01-17 11:23 | disposition home or self-care (01) ==
LOC: HO.XRAY 11:22
PROVIDERS: PCP Internal Medicine; Visit Provider Internal Medicine
DX: M54.2 Cervicalgia (principal)
CPT/HCPCS: 72040

== ENCOUNTER 2023-04-13 10:11 | Emergency (ER) | payer OTHER, SELFPAY ==
[2023-04-13 10:18] VITALS: BP 105/70; PULSE 79; RESP 18; TEMP 36.4; O2SAT 97; BMI 25.0
--- NOTE | 2023-04-13 12:32 | ED_ITS ---
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 Patient states that over the last day he has had a left sided headache that feels directly right behind the eye. Patient denies any current dizziness, lightheadedness, abdominal pain, nausea, vomiting, fever, chills, blurry vision, double vision, loss of vision, chest pain, difficulty breathing, shortness of breath, back pain, night sweats, pain with urination, increased urinary frequency, increased urinary urgency, blood in his urine or stool, syncope or a near syncopal episode, recent trauma or falls, bowel incontinence, bladder incontinence, bowel retention, bladder retention, or any other complaints at this time. Onset (ago): day(s) (1) Location: head Radiation: non-radiation Severity: mild Severity scale (1-10): 3 Quality: dull Pain Consistency: constant Relieving factors: none Exacerbating factors: none Associated symptoms: denies other symptoms Treatments prior to arrival: none Related Data Previous Rx's Medication Instructions Recorded bupropion HCl 75 mg tablet 75 mg PO BID 90 days #180 tabs 11/06/21 duloxetine 30 mg capsule,delayed 30 mg PO BID 30 days #60 caps 12/28/21 release hydroxyzine HCl 25 mg tablet 25 mg PO Q6-8H PRN anxiety #30 tabs 02/19/22 cholecalciferol (vitamin D3) 50 50 mcg PO DAILY 90 days #90 caps 07/14/22 mcg (2,000 unit) capsule acetaminophen 500 mg tablet 500 mg PO Q6H PRN fever or pain 01/14/23 (Tylenol Extra Strength) #14 tabs cyclobenzaprine 5 mg tablet 5 mg PO Q8H PRN pain (scale score 01/14/23 7-10) 5 days #14 tabs naproxen 500 mg tablet 500 mg PO BID PRN pain 10 days #20 01/14/23 tabs quetiapine 50 mg tablet 100 mg PO BEDTIME 90 days #180 tabs 02/09/23 Allergies Allergy/AdvReac Type Severity Reaction Status Date / Time No Known Allergies Allergy Verified 04/13/23 10:23 [No Known Allergies*] Review of Systems Constitutional: Constitutional: Reports no additional constitutional complaints, Denies chills, Denies fever(s), Reports headache(s) and Denies night sweats Eyes: Eyes: Reports no additional eye complaints, Denies blurry vision, Denies change in vision, Denies diplopia, Denies eye discharge, Denies loss of vision and Denies eye pain ENT: Denies dizziness and Reports headache(s) Cardiovascular: Cardiovascular: Reports no additional cardiovascular complaints, Denies chest pain, Denies lightheadedness, Denies Loss of Consciousness and Denies dyspnea Respiratory: Respiratory: Reports no additional respiratory complaints and Denies dyspnea Gastrointestinal: Gastrointestinal: Reports no additional gastrointestinal complaints, Denies abdominal pain, Denies melena, Denies hematochezia, Denies change in bowel habits and Denies change in stool character Genitourinary: Genitourinary: Reports no additional male genitourinary complaints, Denies hematuria, Denies oliguria, Denies difficulty urinating, Denies dysuria, Denies urinary frequency, Denies urinary hesitancy, Denies urinary incontinence and Denies urinary urgency Musculoskeletal: Musculoskeletal: Reports no additional musculoskeletal complaints, Denies numbness and Denies tingling Neurologic: Denies dizziness, Reports headache(s), Denies loss of vision, Myles es numbness and Denies tingling Psychiatric: Psychiatric: Reports no additional psychiatric complaints Endocrine: Endocrine: Reports no additional endocrine complaints Hematologic/Lymphatic: Hematologic/Lymphatic: Reports no additional he matologic/lymphatic complaints Allergic/Immunologic: Allergic/Immunologic: Reports no additional allergic/immunologic complaints [facility] Past Medical History Attestation statement: The following information was validated with the patient. Source: old records reviewed and nursing notes reviewed Medical History Anxiety and depression Bronchitis Diarrhea NAT (generalized anxiety disorder) History of blue Mild recurrent major depression Surgical History Hx of eye surgery Hx of knee surgery Family History Family History Father Essential hypertension CVA (cerebral vascular accident) Mother No problems noted. Social History Social History Household Members Other:: lives with girlfriend Housing: Apartment Alcohol intake: current Alcohol intake frequency: holidays/special occasions only Alcohol type: beer Patient Tobacco Use Status: Current someday Tobacco user Tobacco use type: Cigarette Cigarettes Per Day: 1 Years Smoked: 1 year e-Cigarette/Vaping Use: Never Used Second Hand Smoke Exposure: No Advance Directives: No Advance Directives Information Provided: Yes service: No Current occupational status: employed Current occupational exposures/hazards: No Cognitive needs: No Hearing needs: No Vision needs: No Physical Exam ED Vital Signs: Vital Signs - 24 hr 04/13/23 10:18 04/13/23 14:03 04/13/23 14:56 Temperature 97.5 F 98.9 F Pulse Rate 79 60 76 Respiratory Rate 18 16 18 Blood Pressure 105/70 106/70 128/76 Pulse Oximetry 97 99 98 Oxygen Delivery Method Room Air Room Air BMI result Body Mass Index 25.0 Const General: cooperative, no acute distress, alert and awake Nutritional Appearance: well nourished Orientation/consciousness: patient oriented x3 Limitations: no limitations HENMT Head: Yes normal to inspection and Yes atraumatic Ears: hearing grossly normal bilaterally and external ears normal General nose exam: Normal external nose present, no nasal discharge noted and no epistaxis Face and sinus: Yes normal facial exam, No abrasion and No laceration Mouth: Normal oral and palatal mucosa present, no drooling and no muffled voice Eyes General: appearance normal, both eyes and all related structures Periorbital: periorbital findings normal Eyelids: Yes eyelids normal Conjunctivae: conjunctivae normal Pupils: Equal, round and reactive pupils present EOM: EOMs intact bilaterally Neck Neck: Yes normal visual inspection, Yes full ROM and Yes no lymphadenopathy Chest Chest palpation & inspection: normal inspection of the chest Resp Effort & Inspection: normal respiratory effort and able to speak in complete sentences Auscultation: clear to auscultation bilaterally GI Inspection: Yes normal to inspection Palpation (GI): Soft to palpation, not firm, nontender, no guarding and not rigid Neuro General: patient oriented x3 and moves all extremities Cranial nerves: Yes Equal, round and reactive pupils present Cognition (Neuro): normal cognition Motor exam (neuro): 5/5 motor strength present throughout Sensory Exam: Normal double simultaneous stimulation for sensation Coordination: [id number] test normal Extrem General: Yes normal to inspection, Yes full ROM and Yes capillary refill normal Psych Appearance: grossly normal Mental Status: mental status grossly normal Affect: normal affect Attitude: cooperative Thought process: Normal thought process present Thought content: Normal thought content present Insight: Good insight present (Psych) Medications Administered Discontinued Medications Generic Name Dose Route Start Last Admin Trade Name Freq PRN Reason Stop Dose Admin Acetaminophen/Butalbital/Caffeine 1 tab 04/13/23 12:37 04/13/23 12:52 Butalb/Acetamin/Caff 50/325/40 Tablet PO 04/13/23 12:38 1 tab ONCE ONE Administration Medical Decision Making Medical Decision Making [facility] Narrative: Patient is a 32 year old assigned male at with a history of anxiety and a right eye surgery presenting to the emergency department today with left sided headache. Patient's physical exam was unremarkable. Patient's right sided visual acuity was significantly worse than his left however, the patient confirms that this is chronic for him after the right eye surgery. Patient's blood work was unremarkable. Patient's head CT showed no acute process. I explained my physical exam findings as well as all test results to the patient. I answered all questions asked by the patient. Patient received PO Fiorcet which he stated helped his symptoms significantly. I stressed the importance of the patient taking his medication as prescribed. I stressed the importance of the patient f ollowing up with his primary care provider and his eyeglass inspector. I stressed the importance of the patient returning to the emergency department immediately if his symptoms were to worsen or if he were to develop any dizziness, shortness of breath, difficulty breathing, chest pain, blurry vision, loss of vision, nausea, vomiting, abdominal pain, fever, chills, back pain, or any other complaints. Patient verbalized agreement and understanding with this treatment plan and discharge. Differential Diagnosis Differential Diagnoses: The differential diagnosis associated with the presentation includes Migraine Cluster headache Occular migraine Subdural hematoma - ruled out on CT Epidural hematoma - ruled out on CT Admission/Observation Consideration of admission/observation: Escalation of care including admission/observation considered Patient would have been admitted to the hospital had his work up had any findings where hospital admission was appropriate and his clinical presentation warranted hospital admission. Lab Data [facility] Lab Attestation statement: I reviewed the patient's lab results. My interpretation of these studies and their corresponding values is that they are grossly normal. 04/13/23 13:11 04/13/23 13:11 Labs: Lab Results 04/13/23 04/13/23 04/13/23 Range/Units 13:11 13:11 13:11 WBC 8.9 (4.8-10.8) X10*3/uL RBC 4.67 (4.60-5.80) X10*6/uL Hgb 15.6 (14.0-18.0) g/dl Hct 43.2 (42.0-52.0) % MCV 92.5 (80.0-98.0) fL MCH 33.4 H (27.0-33.0) pg MCHC 36.1 H (31.0-36.0) g/dl RDW 11.9 (11.0-16.0) % Plt Count 246 (160-400) X10*3/uL MPV 9.0 L (9.4-12.4) fL Immature Gran % (Auto) 0.2 (0.0-0.4) % Neut % (Auto) 61.0 (45-73) % Lymph % (Auto) 24.3 (20-40) % [place] % (Auto) 10.5 (2-11) % Eos % (Auto) 3.4 (0-4) % Baso % (Auto) 0.6 (0-2) % Lymph # (Auto) 2.2 (1.2-4.9) X10*3/uL [place] # (Auto) 0.9 (0.1-1.2) X10*3/uL Eos # (Auto) 0.3 (0.0-0.4) X10*3/uL Baso # (Auto) 0.1 (0.0-0.2) X10*3/uL Abs Immat Gran (auto) 0.02 (0.00-0.03) X10*3/uL Absolute Neuts (auto) 5.5 (2.0-8.3) x10*3/uL Absolute Nucleated RBC 0.000 (0.0-0.012) X10*3/uL Nucleated RBC % (auto) 0.0 (0.0-0.2) /100WBC ESR 2 (0-15) MM/HR Sodium 141 (135-145) mmol/L Potassium 4.4 (3.3-5.1) mmol/L Chloride 107 (96-108) mmol/L Carbon Dioxide 29 (22-29) mmol/L Anion Gap 9 L (12-20) BUN 20 H (9-16) mg/dL Creatinine 1.34 (0.5-1.4) mg/dL Estim Creat Clear Calc 71.4 Estimated GFR > 60 Random Glucose 94 (60-115) mg/dL Calcium 9.3 (8.4-10.2) mg/dL Magnesium 2.2 (1.6-2.6) mg/dL Total Bilirubin 1.0 (0.0-1.0) mg/dL AST 16 (5-37) U/L ALT 21 (0-40) U/L Alkaline Phosphatase 63 (39-117) U/L C-Reactive Protein < 0.10 (< or = 0.50) mg/dL Total Protein 7.2 (6.5-8.0) g/dL Albumin 4.4 (3.5-5.0) g/dL Independent Interpretation I performed an independent interpretation of an: CT Scan Interpretation: My interpretation is in agreement with the radiologist's impression of this imaging study. EXAMINATION: CT HEAD WITHOUT CONTRAST CLINICAL INFORMATION: Headache and dizziness. COMPARISON: None. TECHNIQUE: Contiguous axial imaging was performed from the skullbase to vertex without intravenous administration of contrast. This CT examination was performed using dose optimization techniques as appropriate, variously including the following: *Automated exposure control *Adjustment of mA and/or kV according to patient size (this includes techniques or standardized protocols for targeted exams where dose is matched to indication/reason for exam; i.e. extremities or head) *Use of iterative reconstruction technique DLP: 642 mGy-cm. FINDINGS: There is no evidence of acute intracranial hemorrhage or territorial infarction. No abnormal mass effect or midline shift is seen. Dickerson to white matter differentiation is well preserved. No extra-axial fluid collections are identified. The ventricles are normal in size. There is no abnormal attenuation within the brain parenchyma. The osseous structures and soft tissues are normal. The mastoid air cells and visualized portions of the paranasal sinuses are well aerated. CT/CT head/brain wo IV con IMPRESSION: No acute intracranial pathology. Dictated By: CHINO MEZA MD Signed By: Electronically signed by CHINO MEZA MD 04/13/23 3515 Radiology Impression Discussion of test interpretation with radiology: I have reviewed the radiologist's reading. Discharge Plan Discharge Clinical Impression: Migraine Patient Disposition: Home, Self-Care Instructions: Migraine Headache (ED) Additional Instructions: Follow up with your primary care provider and an eyeglass inspector. Return to the emergency department immediately if your symptoms worsen or if you develop any dizziness, shortness of breath, difficulty breathing, chest pain, blurry vision, loss of vision, nausea, vomiting, abdominal pain, fever, chills, back pain, or any other complaints. Laly un seguimiento con hunter proveedor de atenci?n primaria y un oftalm?logo. Regrese al departamento de emergencias de inmediato si michael s?ntomas empeoran o si presenta mareos, falta de aire, dificultad para respirar, dolor de pecho, visi?n borrosa, p?rdida de la visi?n, n?useas, v?mitos, dolor abdominal, fiebre, escalofr?os, dolor de espalda o cualquier otras quejas. Prescriptions: No Action duloxetine 30 mg capsule,delayed release(DR/EC) 30 mg PO BID 30 Days Qty: 60 0RF cholecalciferol (vitamin D3) 50 mcg (2,000 unit) capsule 50 mcg PO DAILY 90 Days Qty: 90 1RF quetiapine 50 mg tablet 100 mg PO BEDTIME 90 Days Qty: 180 0RF acetaminophen [Tylenol Extra Strength] 500 mg tablet 500 mg PO Q6H PRN (Reason: fever or pain) Qty: 14 0RF naproxen 500 mg tablet 500 mg PO BID PRN (Reason: pain) 10 Days Qty: 20 0RF cyclobenzaprine 5 mg tablet 5 mg PO Q8H PRN (Reason: pain (scale score 7-10)) 5 Days Qty: 14 0RF bupropion HCl 75 mg tablet 75 mg PO BID 90 Days Qty: 180 1RF Rx Instructions: administer 6 hours apart hydroxyzine HCl 25 mg tablet 25 mg PO Q6-8H PRN (Reason: anxiety) Qty: 30 0RF Referrals: Lawson Stephenson [Physician] - (Call to establish and follow up with an eyeglass inspector. Llame para establecer y hacer un seguimiento con un oftalm?logo.) Vernell Jackson MD [Primary Care Provider] - Stand Alone Forms: Work/School Release Interventions: ED Discharge Assessment Last Done: 04/13/23 14:58 Discharge Date/Time: 04/13/23 15:00 Print Language: Belarusian
[2023-04-13 14:03] VITALS: BP 106/70; PULSE 60; RESP 16; TEMP 37.2; O2SAT 99
[2023-04-13 14:56] VITALS: BP 128/76; PULSE 76; RESP 18; O2SAT 98
== END 2023-04-13 15:00 | disposition home or self-care (01) ==
PROVIDERS: Emergency Provider Emergency Medicine; PCP Internal Medicine
DX: G43.909 Migraine, unspecified, not intractable, without status migrainosus (principal); F17.210 Nicotine dependence, cigarettes, uncomplicated
CPT/HCPCS: 36415; 70450; 80053; 83735; 85025; 85652; 86140; 99283; 99284

== ENCOUNTER 2023-07-25 08:19 | Outpatient (AMB) | payer OTHER, SELFPAY ==
[2023-07-25 08:27] VITALS: BP 108/70; PULSE 77; O2SAT 98; BMI 25.8
--- NOTE | 2023-07-25 08:27 | A.OFFPC_ITS ---
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 Required: No Accompanied by: Self / Same As Patient Allergies No Known Allergies [No Known Allergies*] Allergy (Verified 07/25/23 08:52) Medication List - Last Reconciled 07/25/23 by Vernell Evans MD cholecalciferol (vitamin D3) 50 mcg PO DAILY 90 days duloxetine 30 mg PO BID 30 days hydroxyzine HCl 25 mg PO Q6-8H PRN naproxen 500 mg PO BID PRN 10 days quetiapine 100 mg (2 x 50 mg) PO BEDTIME 90 days Tobacco use date assessed: 01/17/23 Dental Screening Dental Screen Date: 07/25/23 Did you have a dental visit in the last 12 months?: No Did you have a dental problem in the last 6 months where you did not have access to dental care?: No Was dental information given to patient?: Patient has dentist HPI HPI Comments History of Present Illness Details This is a 33-year-old male with mild recurrent major depression that comes his physical exam. Depression has been stable with duloxetine. No chest pain or shortness of breath. Doing well. PFS Medical History NAT (generalized anxiety disorder) Mild recurrent major depression Anxiety and depression Diarrhea History of blue Bronchitis Surgical History Hx of eye surgery Hx of knee surgery Family History Father Essential hypertension CVA (cerebral vascular accident) Mother No problems noted. Social History Household Members Other:: lives with girlfriend Housing: Apartment Alcohol intake: current Alcohol intake frequency: holidays/special occasions only Alcohol type: beer Patient Tobacco Use Status: Current someday Tobacco user Tobacco use type: Cigarette Cigarettes Per Day: 1 Years Smoked: 1 year e-Cigarette/Vaping Use: Never Used Second Hand Smoke Exposure: No service: No Current occupational status: employed Current occupational exposures/hazards: No Cognitive needs: No Hearing needs: No Vision needs: No Questionnaire Thrive Questionnaire Date Thrive assessed: 01/17/23 NAT-7 AMB Questionnaire NAT-7 Date NAT - 7 assessed: 01/17/23 Source: Developed by Drs. Cesar Esquivel, Amelia Melchor, Eugene Lozano and colleagues, with an educational mohsen from [employer]. Review of Systems Const All systems reviewed & are unremarkable except as noted in HPI and below Eyes Reports no additional complaints, Denies change in vision and Denies other visual disturbances Card Denies chest pain at rest, Denies chest pain with activity, Denies edema, Denies irregular heart rhythm, Denies claudication, Denies dyspnea, Denies dyspnea on exertion, Denies orthopnea, Denies paroxysmal nocturnal dyspnea and Denies slow heart rate Resp Denies cough, Denies dyspnea and Denies dyspnea on exertion GI Denies abdominal pain, Denies change in bowel habits, Denies excessive flatus, Denies nausea and Denies vomiting Denies urinary hesitancy, Denies urinary incontinence and Denies urinary urgency Musc Denies abnormal gait, Denies atrophy, Denies deformity and Denies limited range of motion Skin/Breast Denies bleeding lesions, Denies changing lesions and Denies rash Neuro Denies abnormal gait, Denies confusion and Denies lack of coordination Psych Denies confusion Physical exam (Primary Care) Vital Signs: Last Vital Signs Pulse 77 07/25/23 08:27 BP 108/70 07/25/23 08:27 Pulse Ox 98 07/25/23 08:27 Oxygen Delivery Method Room Air 07/25/23 08:27 BMI result Body Mass Index 25.8 Tobacco/Smoking Status: Tobacco use Status Tobacco use date assessed 01/17/23 07/25/23 08:34 Patient Tobacco Use Status Current someday Tobacco 07/25/23 08:34 Tobacco use type Cigarette 07/25/23 08:34 e-Cigarette/Vaping Use Never Used 07/25/23 08:34 Thrive Assessment: Date of Thrive Assessment Date Thrive assessed 01/17/23 07/25/23 08:34 Const General: No confusion Orientation/consciousness: patient oriented x3 and No confusion HENMT Head: Yes normal to inspection, Yes normocephalic and Yes atraumatic Ears: external ears normal Eyes General: appearance normal, both eyes and all related structures Eyelids: Yes eyelids normal Conjunctivae: conjunctivae normal Neck Neck: Yes normal visual inspection and Yes supple Resp Effort & Inspection: normal respiratory effort Auscultation: clear to auscultation bilaterally Cardio Jugular venous distension: no JVD Rate: regular rate Rhythm: regular rhythm Heart sounds: S1 normal heart sound present and S2 normal heart sound present GI Inspection: Yes normal to inspection Palpation (GI): Soft to palpation and nontender Auscultation: normal bowel sounds Skin General skin exam: no rashes or lesions noted Neuro General: patient oriented x3, no focal motor deficits and No confusion Extrem General: Yes full ROM Psych Appearance: grossly normal Office Procedures Flu Questionnaire Does the patient have a severe egg allergy?: No Immunizations flu vacc [id number] 6mos up(PF) 60 mcg(15 mcgx4)/0.5 mL IM syringe Performing Provider: Vernell Evans MD [facility] Documented (not given) by: DAWSON Blake on 07/25/23 08:35 Reason Not Given: Patient Refused Assessment and Plan Assessment & Plan (1) Physical exam: Code(s): Z00.00 - Encounter for general adult medical examination without abnormal fin dings Plan: Repeat in a year. (2) Mild recurrent major depression: Code(s): F33.0 - Major depressive disorder, recurrent, mild Plan: Continue duloxetine. Orders: Orders Influenza [id number] Immunization Today Z23 - Encounter for immunization Vitamin D 25-OH Total Today E55.9 - Vitamin D deficiency, unspecified Medications: Refilled duloxetine 30 mg PO BID 60 caps 0RF 30 days cholecalciferol (vitamin D3) 50 mcg PO DAILY 90 caps 1RF 90 days hydroxyzine HCl 25 mg PO Q6-8H PRN 30 tabs 0RF anxiety naproxen 500 mg PO BID PRN 20 tabs 0RF pain 10 days quetiapine 100 mg (2 x 50 mg) PO BEDTIME 180 tabs 0RF 90 days Coding Level of Care Code Est Pt Prev Care [id number]([id number]) Diagnoses Physical exam Z00.00 Mild recurrent major depression F33.0 Time Spent (min) 33
== END 2023-07-25 09:01 | disposition home or self-care (01) ==
PROVIDERS: Visit Provider Internal Medicine
DX: Z00.00 Encounter for general adult medical examination without abnormal findings (principal); F33.0 Major depressive disorder, recurrent, mild
CPT/HCPCS: 99395

== ENCOUNTER 2023-07-25 09:15 | Outpatient (REF) | payer OTHER, SELFPAY ==
[2023-07-25 13:01] LABS: Vitamin D 25-OH Total 23.8 ng/mL (>30)
== END 2023-07-25 09:16 | disposition home or self-care (01) ==
LOC: HO.LAB 09:15
PROVIDERS: PCP Internal Medicine; Visit Provider Internal Medicine
DX: E55.9 Vitamin D deficiency, unspecified (principal)
CPT/HCPCS: 36415; 82306